=== PATIENT | female | born 1955 | race Caucasian/White ===

== ENCOUNTER 2023-11-24 22:23 | Emergency (ER) | payer MEDICARE ==
[2023-11-24] MEDS ORDERED: SODIUM CHLORIDE 0.9% 1,000 ML BAG ONE (23:00)
--- NOTE | 2024-01-03 18:14 | XR ---
EXAM: XR Chest, 2 Views CLINICAL HISTORY: cough congestion palpitations TECHNIQUE: Frontal and lateral views of the chest. COMPARISON: No relevant prior studies available. IMPRESSION: Cardiomegaly. Mild vascular congestion. Radiologist: Porfirio Marmolejo MD Electronically Signed: 11/25/23 02:17 Study first marked ready to read at 00:39, study last marked ready to read at 00:39, initial results transmitted at 02:17 MTDD
== END 2023-11-25 07:30 | disposition home or self-care (01) ==
LOC: EC 22:23
CPT/HCPCS: 36415; 71046; 84481; 99285

== ENCOUNTER 2024-05-04 03:18 | Emergency (ER) | payer MEDICARE ==
[2024-05-04 03:50] LABS: Anisocytosis Slight; Basophils % (A) 0 %; Eosinophils # (A) 0.1 k/uL (0-0.7); Eosinophils % (A) 1 %; HCT 37.5 % (34.0-46.0); HGB 12.1 gm/dL (11.4-16.0); Hypochromasia Slight; Lymphocytes # (A) 1.1 k/uL (1.0-4.8); Lymphocytes % (A) 8 %; MCH 34.7 pg (25.0-35.0); MCHC 32.2 g/dL (31.0-37.0); MCV 107.7 fL (80.0-100.0); Macrocytosis Marked; Mean Platelet Volume 8.6; Monocytes % (A) 8 %; Neutrophils # (A) 10.7 k/uL (1.3-7.7); Neutrophils % (A) 81 %; RBC 3.48 m/uL (3.80-5.40); RDW 17.4 % (11.5-15.5); WBC 13.1 k/uL (3.8-10.6)
[2024-05-04 03:52] LABS: Ionized Calcium 5.1 mg/dL (4.5-5.3)
[2024-05-04] MEDS: SODIUM CHLORIDE 0.9% 500 ML 500 ML IV STA (03:54)
[2024-05-04 04:01] LABS: AST 36 U/L (14-36); Acetaminophen <10.0 ug/mL; African American GFR (CKD) 22 (>60 ml/min/1.73 sqM); Albumin 3.4 g/dL (3.5-5.0); Alkaline Phosphatase 78 U/L (38-126); Anion Gap 17 mmol/L; Blood Urea Nitrogen 43 mg/dL (7-17); Calcium 10.3 mg/dL (8.4-10.2); Carbon Dioxide 18 mmol/L (22-30); Chloride 95 mmol/L (98-107); Glucose 120 mg/dL (74-99); Magnesium 1.9 mg/dL (1.6-2.3); Non-African American GFR(CKD) 19 (>60 ml/min/1.73 sqM); Potassium 3.3 mmol/L (3.5-5.1); Salicylate <1.0 mg/dL; Sodium 130 mmol/L (137-145); Total Bilirubin 4.1 mg/dL (0.2-1.3); Total Protein 5.8 g/dL (6.3-8.2)
[2024-05-04 04:07] LABS: ALT 22 U/L (4-34)
--- NOTE | 2024-05-04 04:12 | ED ---
General Adult HPI - General Chief complaint: Weakness Stated complaint: weakness Time Seen by Provider: 05/04/24 03:25 Source: EMS Mode of arrival: EMS - History of Present Illness Initial comments: Patient is a 68-year-old female past medical history of MENDOZA presenting today for generalized weakness. Per EMS report patient was recently discharged from the hospital and for the last 3 days she has been so weak that her son and have tried to had to lift her to get her to the toilet. History is limited as patient is currently confused. - Related Data Allergies Allergy/AdvReac Type Severity Reaction Status Date / Time GEMMA Inhibitors Allergy Swelling Verified 05/04/24 04:11 adhesive tape Allergy Rash/Hives Verified 05/04/24 04:11 isosorbide Allergy Anaphylaxis Verified 05/04/24 04:11 Review of Systems ROS Statement: Those systems with pertinent positive or pertinent negative responses have been documented in the HPI. Limitations: ROS unobtainable due to patients medical condition Past Medical History Past Medical History: Cancer General Exam - General Exam Comments Initial Comments: PE: CONSTITUTIONAL: [no apparent distress, ill-appearing, nontoxic] SKIN: [warm, dry,no hives or petechiae; generalized jaundice] EYES:[ pupils are equally round, extraocular movements intact without nystagmus, clear conjunctiva, scleral icterus] HENT: [normocephalic, atraumatic, dry mucus membranes, oropharynx clear without exudates] NECK: , [Full range of motion, normal appearance] PULMONARY: [clear to auscultation without wheezes, rhonchi, or rales, normal excursion, no accessory muscle use and no stridor] CARDIOVASCULAR:[ regular rate, rhythm, normal S1 and S2. No appreciated murmurs, rubs or gallops. Strong radial pulses with intact distal perfusion. No lower extremity edema] GASTROINTESTINAL: [soft, active bowel sounds throughout, tender to palpation in the right upper quadrant, mildly distended, no palpable masses, no rebound or guarding. Palpable hepatomegaly] GENITOURINARY: MUSCULOSKELETAL: [Extremities have no gross deformity, no edema, redness, or swelling. No calf swelling ] NEUROLOGIC: [_a/o x 1-2, GCS 14, confused mentation and speech without focal neurologic deficit. Moves all extremities x 4 without motor or sensory deficit] PSYCHIATRIC:[ _normal mood and affect, thought process is clear and linear] Course Vital Signs 05/04/24 03:20 Temperature 97.2 F L Pulse Rate 94 Respiratory 16 Rate Blood Pressure 115/75 O2 Sat by Pulse 99 Oximetry EKG Findings - EKG Comments: EKG Findings:: Sinus rhythm, rate 93 bpm, AR interval 132 ms QRS duration 120 ms QT/QTc 397/447, normal axis, right bundle branch block, no ST elevations or depressions, no STEMI Medical Decision Making - Medical Decision Making Was pt. sent in by a medical professional or institution (, PA, LIDAR ANALYST, urgent care, hospital, or fdc...) When possible be specific @ -No Did you speak to anyone other than the patient for history (EMS, parent, family, police, friend...)? What history was obtained from this source @ -I spoke with patient's who assisted in providing history, stating patient was recently admitted to [facility] due to complications from MENDOZA Did you review nursing and triage notes (agree or disagree)? Why? @ -I reviewed nursing and triage notes Were old charts reviewed (outside hosp., previous admission, EMS record, old EKG, old radiological studies, urgent care reports/EKG's, fdc records)? Report findings @ -Medical records reviewed reviewed discharge papers that were brought with patient from home, patient was discharged from [facility] on 04/29/2023, discharged with lactulose and Dilaudid Differential Diagnosis (chest pain, altered mental status, abdominal pain women, abdominal pain men, vaginal bleeding, weakness, fever, dyspnea, syncope, headache, dizziness, GI bleed, back pain, seizure, CVA, palpatations, mental health, musculoskeletal)? @Differential Weakness: Hypoglycemia, shock, sepsis, hyponatremia, anemia, infection, ACS, adverse medicine reaction, overdose, hyperammonemia, KALANI, this is not meant to be an all-inclusive list. EKG interpreted by me (3pts min.). @ -As above X-rays interpreted by me (1pt min.). @Reviewed patient's chest x-ray, I see no evidence of cardiomegaly, consolidations or pleural effusions CT interpreted by me (1pt min.). @I reviewed CT brain, I see no evidence of hemorrhage or mass effect U/S interpreted by me (1pt. min.). @ -None done What testing was considered but not performed or refused? (CT, X-rays, U/S, labs)? Why? @CT abdomen pelvis considered, however suspect RUQ pain 2/2 underlying liver disease, pt afebrile and abdomen is otherwise soft without peritoneal signs What meds were considered but not given or refused? Why? @ -None Did you discuss the management of the patient with other professionals (professionals i.e. , PA, LIDAR ANALYST, lab, RT, psych nurse, social worker aide, seasoning sprayer, teacher, chief security officer, disease case manager)? Give summary @ -No Was smoking cessation discussed for >3mins.? @ -No Was critical care preformed (if so, how long)? @ -No Were there social determinants of health that impacted care today? How? (Shiva elessness, low income, unemployed, alcoholism, drug addiction, transportation, low edu. Level, literacy, decrease access to med. care, penitentiary, rehab)? @ -No Was there de-escalation of care discussed even if they declined (Discuss DNR or withdrawal of care, Hospice)? @ -No What co-morbidities impacted this encounter? (DM, HTN, Smoking, COPD, CAD, Cancer, CVA, ARF, Chemo, Hep., AIDS, mental health diagnosis, sleep apnea, morbid obesity)? Transfer to [facility]- Patient is a 68-year-old female past medical history of MENDOZA presenting today for generalized weakness. On my assessment patient is awake though ill-appearing, nontoxic, she is confused oriented x 1-2, no focal neurodeficits, jaundice, scleral icterus, right upper quadrant tenderness to palpation. Vital signs in acceptable limits on arrival. I suspect confusion and weakness are likely secondary to hyperammonemia however we will obtain a CT brain, comprehensive labs chest x-ray EKG give small amount of IV fluids given dry mucous membranes. Currently awaiting 's arrival for further information. Labs significant for mild leukocytosis white blood count 13.1, platelets of 80, sodium 138 potassium 3.3, anion gap 17, BUN 43, creatinine 2.52, no prior for comparison, GFR 19, lactic of 5.4, calcium 10.3 ammonia 75, AST/ALT. within normal limits, total bilirubin 4.1. Given RUQ pain, leukocytosis, elevated lactic, added blood cultures, rocephin to cover for SBP, and additional IV fluids for total 2L to complete sepsis bundle and 30 cc/kg bolus based on IBW. Added lactulose as well 2/2 elevated ammonia. Patient at bedside. States that patient does has MENDOZA, and has been seeing a liver doctor at [facility]. She was also found to have a mass in her uterus that "they think could be potentially cancerous" however they are not able to do further testing or treatment at this time, due to how unstable patient has been 2/2 her liver and renal disease. States that her doctor at [facility] has been considering some type of shunt 2/2 her liver disease however pt has been too sick to undergo the procedure. Ever since discharge from [place] on 29 April, she is become progressively weaker, has been "delusional" and had persistent abdominal pain. Given patient's jaundice, poor kidney function, elevated lactic and ammonia, pt will need to be admitted to the hospital, however will need to see her liver specialist as well. For this reason discussed with patient's plan for transfer to [facility]. Patient's is agreeable with plan. Case discussed with Dr. Dahl, [facility], who kindly accepts patient for transfer to their ER. Undiagnosed new problem with uncertain prognosis? @ -No Drug Therapy requiring intensive monitoring for toxicity (Heparin, Nitro, Insulin, Cardizem)? @ -No Were any procedures done? @ -No Diagnosis/symptom? Hepatic encephalopathy Acute, or Chronic, or Acute on Chronic? acute Uncomplicated (without systemic symptoms) or Complicated (systemic symptoms)? complicated Side effects of treatment? @ -No Exacerbation, Progression, or Severe Exacerbation? @ -No Poses a threat to life or bodily function? How? (Chest pain, USA, [place], pneumonia, PE, COPD, DKA, ARF, appy, cholecystitis, CVA, Diverticulitis, Homicidal, Suicidal, threat to staff... and all critical care pts) yes - Lab Data Result diagrams: 05/04/24 03:41 05/04/24 03:41 Lab Results 05/04/24 05/04/24 05/04/24 Range/Units 03:41 03:41 03:41 WBC 13.1 H (3.8-10.6) k/uL RBC 3.48 L (3.80-5.40) m/uL Hgb 12.1 (11.4-16.0) gm/dL Hct 37.5 (34.0-46.0) % MCV 107.7 H (80.0-100.0) fL MCH 34.7 (25.0-35.0) pg MCHC 32.2 (31.0-37.0) g/dL RDW 17.4 H (11.5-15.5) % Plt Count 80 L (150-450) k/uL MPV 8.6 Hypochromasia Slight Anisocytosis Slight Macrocytosis Marked A PT 19.6 H (10.0-12.5) sec INR 1.9 H (<1.2) APTT 32.2 H (22.0-30.0) sec Sodium 130 L (137-145) mmol/L Potassium 3.3 L (3.5-5.1) mmol/L Chloride 95 L (98-107) mmol/L Carbon Dioxide 18 L (22-30) mmol/L Anion Gap 17 mmol/L BUN 43 H (7-17) mg/dL Creatinine 2.52 H (0.52-1.04) mg/dL Est GFR (CKD-EPI)AfAm 22 (>60 ml/min/1.73 sqM) Est GFR (CKD-EPI)NonAf 19 (>60 ml/min/1.73 sqM) Glucose 120 H (74-99) mg/dL Plasma Lactic Acid Luis (0.7-2.0) mmol/L Calcium 10.3 H (8.4-10.2) mg/dL Ionized Calcium Cl 5.1 (4.5-5.3) mg/dL Magnesium 1.9 (1.6-2.3) mg/dL Total Bilirubin 4.1 H (0.2-1.3) mg/dL AST 36 (14-36) U/L ALT 22 (4-34) U/L Alkaline Phosphatase 78 (38-126) U/L Ammonia (<30) umol/L Troponin I (0.000-0.034) ng/mL Total Protein 5.8 L (6.3-8.2) g/dL Albumin 3.4 L (3.5-5.0) g/dL TSH 1.460 (0.465-4.680) mIU/L Salicylates <1.0 mg/dL Acetaminophen <10.0 ug/mL 05/04/24 05/04/24 Range/Units 03:41 03:41 WBC (3.8-10.6) k/uL RBC (3.80-5.40) m/uL Hgb (11.4-16.0) gm/dL Hct (34.0-46.0) % MCV (80.0-100.0) fL MCH (25.0-35.0) pg MCHC (31.0-37.0) g/dL RDW (11.5-15.5) % Plt Count (150-450) k/uL MPV Hypochromasia Anisocytosis Macrocytosis PT (10.0-12.5) sec INR (<1.2) APTT (22.0-30.0) sec Sodium (137-145) mmol/L Potassium (3.5-5.1) mmol/L Chloride (98-107) mmol/L Carbon Dioxide (22-30) mmol/L Anion Gap mmol/L BUN (7-17) mg/dL Creatinine (0.52-1.04) mg/dL Est GFR (CKD-EPI)AfAm (>60 ml/min/1.73 sqM) Est GFR (CKD-EPI)NonAf (>60 ml/min/1.73 sqM) Glucose (74-99) mg/dL Plasma Lactic Acid Luis 5.4 H* (0.7-2.0) mmol/L Calcium (8.4-10.2) mg/dL Ionized Calcium Cl (4.5-5.3) mg/dL Magnesium (1.6-2.3) mg/dL Total Bilirubin (0.2-1.3) mg/dL AST (14-36) U/L ALT (4-34) U/L Alkaline Phosphatase (38-126) U/L Ammonia 75 H (<30) umol/L Troponin I <0.012 (0.000-0.034) ng/mL Total Protein (6.3-8.2) g/dL Albumin (3.5-5.0) g/dL TSH (0.465-4.680) mIU/L Salicylates mg/dL Acetaminophen ug/mL Disposition Clinical Impression: Hepatic encephalopathy Disposition: DC/TRNS INTERMEDIATE CARE FAC Condition: Stable Referrals: None,Stated [Primary Care Provider] - 1-2 days
[2024-05-04 04:24] LABS: Lactic Acid, Venous 5.4 mmol/L (0.7-2.0)
--- NOTE | 2024-05-04 04:29 | CT ---
EXAM: CT Head Without Intravenous Contrast CLINICAL HISTORY: ITS.REASON CT Reason: weakness, AMS TECHNIQUE: Axial computed tomography images of the head/brain without intravenous contrast. CTDI is 49.2 mGy and DLP is 1184.4 mGy-cm. This CT exam was performed using one or more of the following dose reduction techniques: automated exposure control, adjustment of the mA and/or kV according to patient size, and/or use of iterative reconstruction technique. COMPARISON: No relevant prior studies available. FINDINGS: No acute intracranial hemorrhage. No midline shift or mass effect. The territorial pratt-white matter differentiation is maintained throughout. Age-related cerebral volume loss. Periventricular and subcortical white matter hypoattenuation, consistent with chronic microangiopathy. The visualized orbits appear grossly unremarkable. The calvarium is intact. The visualized paranasal sinuses and mastoid air cells are grossly clear. IMPRESSION: No acute intracranial hemorrhage, midline shift, or mass effect.
[2024-05-04] MEDS: LACTULOSE 20 GM/30 ML CUP PO ONE (04:31)
[2024-05-04] MEDS: LACTATED RINGERS 1,000 ML BAG IV STA ×2 (04:36→06:22)
[2024-05-04 04:53] LABS: INR 1.9 (<1.2); Partial Thromboplastin Time 32.2 sec (22.0-30.0); Prothrombin Time 19.6 sec (10.0-12.5)
[2024-05-04] MEDS: POTASSIUM CHLORIDE 20 MEQ in WATER FOR INJECTION 1 100ML.BAG IVPB STA (05:45)
[2024-05-04 06:10] LABS: Platelet Count 80 k/uL (150-450)
[2024-05-04] MEDS: HYDROmorphone 0.5 MG/0.5 ML SYRINGE IVP STA (06:12)
[2024-05-04] MEDS: cefTRIAXone 1,000 MG VIAL (IM USE) IM STA ×2 (06:14→06:21)
--- NOTE | 2024-05-04 06:20 | XR ---
EXAM: XR Chest, 2 Views CLINICAL HISTORY: Reason: Weakness TECHNIQUE: Frontal and lateral views of the chest. COMPARISON: No relevant prior studies available. FINDINGS: Lungs: Normal lung volumes. No evidence of airspace consolidation. No pulmonary edema. Pleural space: Unremarkable. No pneumothorax. No significant pleural effusion. Heart: Unremarkable. No cardiomegaly. Mediastinum: Unremarkable. Normal mediastinal contour. Bones/joints: Unremarkable. No acute fracture. IMPRESSION: No evidence of active cardiopulmonary abnormality.
[2024-05-04 07:35] VITALS: BP 112/81; PULSE 89; RESP 20; TEMP 97.5
== END 2024-05-04 07:35 | disposition other institution (70) ==
LOC: EC 03:18
DX: K76.82 Hepatic encephalopathy (principal); I45.10 Unspecified right bundle-branch block; D72.829 Elevated white blood cell count, unspecified; R74.02 Elevation of levels of lactic acid dehydrogenase [LDH]; Z88.8 Allergy status to other drugs, medicaments and biological substances; Z91.09 Other allergy status, other than to drugs and biological substances
CPT/HCPCS: 36415; 93005; 80053; 82330; 82140; 83605; 83735; 84443; 84484; 85025; 85610; 85730; 80143; 80179; 71046; 70450; 99285; 96365; 96375; 96361 ×2; 96372; J3480; J0696; J1171

== ENCOUNTER 2024-07-06 08:54 | Inpatient (IN) | payer MEDICARE ==
--- NOTE | 2024-07-06 09:07 | ED ---
General Adult HPI - General Stated complaint: Weakness Time Seen by Provider: 07/06/24 08:54 Source: patient, RN notes reviewed, old records reviewed - History of Present Illness Initial comments: This is a 69-year-old female who presents to the emergency department with a past medical history significant for renal failure liver failure and a history of vertigo. Patient states she believes which she has going on today is vert ical. Patient states that started 3 days ago and she is very dizzy lightheaded and weak but she also was acutely nauseous and been vomiting for quite a while. Patient denies any fever or chills. Patient Nu[place] any abdominal pain. Patient denies chest pain palpitations difficulty breathing or shortness of breath. Patient denies any recent injury or trauma. Patient currently is unable to tell me why she has kidney failure or liver failure. - Related Data Home Medications Medication Instructions Recorded Confirmed Aspirin [Adult Low Dose Aspirin EC] 81 mg PO DAILY 07/01/24 07/06/24 Cider Vinegar [Apple Cider Vinegar] 300 mg PO DAILY 07/01/24 07/06/24 Lactulose 10 gm PO BID PRN 07/01/24 07/06/24 Midodrine [ProAmatine] 17.5 tab PO TID 07/01/24 07/06/24 Pantoprazole [Protonix] 40 mg PO BID 07/01/24 07/06/24 Rosuvastatin [Crestor] 20 mg PO HS 07/01/24 07/06/24 Sodium Bicarbonate Tab 1,300 mg PO TID 07/01/24 07/06/24 Hydrocortisone Cream 1 applic TOPICAL DAILY 07/06/24 07/06/24 [Hydrocortisone 2.5% Cream] Ondansetron Odt [Zofran Odt] 4 mg PO Q6H PRN 07/06/24 07/06/24 Rifaximin [Xifaxan] 550 mg PO BID 07/06/24 07/06/24 Allergies Allergy/AdvReac Type Severity Reaction Status Date / Time GEMMA Inhibitors Allergy Swelling Verified 07/06/24 11:45 adhesive tape Allergy Rash/Hives Verified 07/06/24 11:45 isosorbide Allergy Anaphylaxis Verified 07/06/24 11:45 octreotide Allergy Hallucinati Verified 07/06/24 11:45 ons Review of Systems ROS Statement: Those systems with pertinent positive or pertinent negative responses have been documented in the HPI. ROS Other: All systems not noted in ROS Statement are negative. Past Medical History Past Medical History: Cancer General Exam - General Exam Comments Initial Comments: GENERAL: Patient is well-developed and well-nourished. Patient is nontoxic and well- hydrated and is in mild distress. ENT: Neck is soft and supple. No significant lymphadenopathy is noted. Oropharynx is clear. Moist mucous membranes. Neck has full range of motion without elic iting any pain. EYES: The sclera were anicteric and conjunctiva were pink and moist. Extraocular movements were intact and pupils were equal round and reactive to light. Eyelids were unremarkable. PULMONARY: Unlabored respirations. Good breath sounds bilaterally. No audible rales rhonchi or wheezing was noted. CARDIOVASCULAR: There is a regular rate and rhythm without any murmurs gallops or rubs. ABDOMEN: Soft and nontender with normal bowel sounds. SKIN: Skin is clear with no lesions or rashes and otherwise unremarkable. NEUROLOGIC: Patient is alert and oriented x3. Cranial nerves II through XII are grossly intact. Motor and sensory are also intact. Normal speech, volume and content. Symmetrical smile. Finger-nose testing was normal bilaterally MUSCULOSKELETAL: Normal extremities with adequate strength and full range of motion. LYMPHATICS: No significant lymphadenopathy is noted PSYCHIATRIC: Normal psychiatric evaluation. Course Vital Signs 07/06/24 07/06/24 07/06/24 08:55 09:23 09:45 Temperature 97.4 F L Pulse Rate 89 89 Respiratory 18 18 Rate Blood Pressure 75/58 89/47 92/49 O2 Sat by Pulse 90 L 94 L Oximetry 07/06/24 07/06/24 07/06/24 10:15 10:30 11:15 Temperature Pulse Rate 87 Respiratory 20 Rate Blood Pressure 103/54 89/53 90/50 O2 Sat by Pulse 93 L Oximetry 07/06/24 07/06/24 11:30 11:47 Temperature Pulse Rate 90 Respiratory 20 Rate Blood Pressure 91/49 84/52 O2 Sat by Pulse 96 Oximetry Medical Decision Making - Medical Decision Making EKG is interpreted by myself. EKG shows a sinus rhythm 87 bpm ND interval is 172 QRS is 105 QT interval 392 QTc is 437. Patient's EKG shows no ST segment elevation. Was pt. sent in by a medical professional or institution (Dr., PA, CAR BODY MECHANIC, urgent care, hospital, or penitentiary...) When possible be specific @ -No Did you speak to anyone other than the patient for history (EMS, parent, family, police, friend...)? What history was obtained from this source @ -No Did you review nursing and triage notes (agree or disagree)? Why? @ -I reviewed and agree with nursing and triage notes Were old charts reviewed (outside hosp., previous admission, EMS record, old EKG, old radiological studies, urgent care reports/EKG's, penitentiary records)? Report findings @ -No old charts were reviewed Differential Diagnosis? @ -Vertigo, gastritis, viral syndrome, this is not an all-inclusive list EKG interpreted by me (3pts min.). @ -As above X-rays interpreted by me (1pt min.). @ -Chest x-ray shows no acute abnormality CT interpreted by me (1pt min.). @ -CT of the brain shows no acute abnormality U/S interpreted by me (1pt. min.). @ -None done What testing was considered but not performed or refused? (CT, X-rays, U/S, labs)? Why? @ -None What meds were considered but not given or refused? Why? @ -None Did you discuss the management of the patient with other professionals (professionals i.e. BETO Puente, CAR BODY MECHANIC, lab, RT, psych nurse, social service worker, tile erector, teacher, event security officer, telephonic case manager)? Give summary @ -I spoke with sound physicians he agreed to admit the patient admit the patient wrote admitting orders Was smoking cessation discussed for >3mins.? @ -No Was critical care preformed (if so, how long)? @ -No Were there social determinants of health that impacted care today? How? (Homelessness, low income, unemployed, alcoholism, drug addiction, transportation, low edu. Level, literacy, decrease access to med. care, fpc, rehab)? @ -No Was there de-escalation of care discussed even if they declined (Discuss DNR or withdrawal of care, Hospice)? DNR status @ -No What co-morbidities impacted this encounter? (DM, HTN, Smoking, COPD, CAD, Cancer, CVA, ARF, Chemo, Hep., AIDS, mental health diagnosis, sleep apnea, morbid obesity)? @ -None Was patient admitted / discharged? Hospital course, mention meds given and route, prescriptions, significant lab abnormalities, going to OR and other pertinent info. @ -Patient's lab work came back with a lower than normal hemoglobin sodium was 124 creatinine had significantly increased since her last visit. Patient will be [facility] with a consult to nephrology and GI Undiagnosed new problem with uncertain prognosis? @ -No Drug Therapy requiring intensive monitoring for toxicity (Heparin, Nitro, Insulin, Cardizem)? @ -No Were any procedures done? @ -No Diagnosis/symptom? @ -Acute on chronic renal failure Acute, or Chronic, or Acute on Chronic? @ -Acute on chronic Uncomplicated (without systemic symptoms) or Complicated (systemic symptoms)? @ -Complicate Side effects of treatment? @ -No Exacerbation, Progression, or Severe Exacerbation? @ -No Poses a threat to life or bodily function? How? (Chest pain, USA, [place], pneumonia, PE, COPD, DKA, ARF, appy, cholecystitis, CVA, Diverticulitis, Homicidal, Suicidal, threat to staff... and all critical care pts) @ -Yes this could lead to electrolyte abnormalities and significant morbidity or mortality Diagnosis/symptom? @ -Hyponatremia Acute, or Chronic, or Acute on Chronic? @ -Acute Uncomplicated (without systemic symptoms) or Complicated (systemic symptoms)? @ -Complicate Side effects of treatment? @ -None Exacerbation, Progression, or Severe Exacerbation] @ -No Poses a threat to life or bodily function? @ -No Diagnosis/symptom? @ -Anemia Acute, or Chronic, or Acute on Chronic? @ -Acute Uncomplicated (without systemic symptoms) or Complicated (systemic symptoms)? @ -Complicated Side effects of treatment? @ -None Exacerbation, Progression, or Severe Exacerbation] @ -No Poses a threat to life or bodily function? @ -No - Lab Data Result diagrams: 07/06/24 09:11 07/06/24 09:11 Lab Results 07/06/24 07/06/24 07/06/24 Range/Units 09:11 09:11 09:11 WBC 8.5 (3.8-10.6) k/uL RBC 2.98 L (3.80-5.40) m/uL Hgb 9.8 L D (11.4-16.0) gm/dL Hct 30.2 L (34.0-46.0) % MCV 101.2 H D (80.0-100.0) fL MCH 33.0 (25.0-35.0) pg MCHC 32.6 (31.0-37.0) g/dL RDW 23.1 H (11.5-15.5) % Plt Count 106 L (150-450) k/uL MPV 8.6 Neutrophils % (Manual) 85 % Lymphocytes % (Manual) 8 % Monocytes % (Manual) 7 % Neutrophils # (Manual) 7.23 (1.3-7.7) k/uL Lymphocytes # (Manual) 0.68 L (1.0-4.8) k/uL Monocytes # (Manual) 0.60 (0-1.0) k/uL Nucleated RBCs 0 (0-0) /100 WBC Manual Slide Review Performed Anisocytosis Moderate Macrocytosis Marked A PT 14.0 H (10.0-12.5) sec INR 1.3 H (<1.2) APTT 22.5 (22.0-30.0) sec Sodium 124 L (137-145) mmol/L Potassium 3.8 (3.5-5.1) mmol/L Chloride 87 L (98-107) mmol/L Carbon Dioxide 21 L (22-30) mmol/L Anion Gap 16 mmol/L BUN 72 H (7-17) mg/dL Creatinine 4.79 H (0.52-1.04) mg/dL Est GFR (CKD-EPI)AfAm 10 (>60 ml/min/1.73 sqM) Est GFR (CKD-EPI)NonAf 9 (>60 ml/min/1.73 sqM) Glucose 135 H (74-99) mg/dL Calcium 9.4 (8.4-10.2) mg/dL Magnesium 2.8 H (1.6-2.3) mg/dL Total Bilirubin 2.6 H (0.2-1.3) mg/dL AST 68 H (14-36) U/L ALT 22 (4-34) U/L Alkaline Phosphatase 133 H (38-126) U/L Troponin I (0.000-0.034) ng/mL Total Protein 5.4 L (6.3-8.2) g/dL Albumin 2.9 L (3.5-5.0) g/dL 07/06/24 Range/Units 09:11 WBC (3.8-10.6) k/uL RBC (3.80-5.40) m/uL Hgb (11.4-16.0) gm/dL Hct (34.0-46.0) % MCV (80.0-100.0) fL MCH (25.0-35.0) pg MCHC (31.0-37.0) g/dL RDW (11.5-15.5) % Plt Count (150-450) k/uL MPV Neutrophils % (Manual) % Lymphocytes % (Manual) % Monocytes % (Manual) % Neutrophils # (Manual) (1.3-7.7) k/uL Lymphocytes # (Manual) (1.0-4.8) k/uL Monocytes # (Manual) (0-1.0) k/uL Nucleated RBCs (0-0) /100 WBC Manual Slide Review Anisocytosis Macrocytosis PT (10.0-12.5) sec INR (<1.2) APTT (22.0-30.0) sec Sodium (137-145) mmol/L Potassium (3.5-5.1) mmol/L Chloride (98-107) mmol/L Carbon Dioxide (22-30) mmol/L Anion Gap mmol/L BUN (7-17) mg/dL Creatinine (0.52-1.04) mg/dL Est GFR (CKD-EPI)AfAm (>60 ml/min/1.73 sqM) Est GFR (CKD-EPI)NonAf (>60 ml/min/1.73 sqM) Glucose (74-99) mg/dL Calcium (8.4-10.2) mg/dL Magnesium (1.6-2.3) mg/dL Total Bilirubin (0.2-1.3) mg/dL AST (14-36) U/L ALT (4-34) U/L Alkaline Phosphatase (38-126) U/L Troponin I <0.012 (0.000-0.034) ng/mL Total Protein (6.3-8.2) g/dL Albumin (3.5-5.0) g/dL Disposition Clinical Impression: Anemia, Hyponatremia, Acute on chronic renal failure Disposition: ADMITTED IP TO THIS HOSP Referrals: Korin Ramesh MD [Primary Care Provider] - 1-2 days Time of Disposition: 12:11
[2024-07-06] MEDS: SCOPOLAMINE 1 MG/72 HR PATCH TRANSDERM STA (09:13)
[2024-07-06] MEDS: METOCLOPRAMIDE 5 MG/ML 2 ML VIAL IVP STA (09:13)
[2024-07-06] MEDS: LACTATED RINGERS 500 ML IV ONE (09:13)
[2024-07-06 09:17] LABS: Anisocytosis Moderate; HCT 30.2 % (34.0-46.0); MCHC 32.6 g/dL (31.0-37.0); Macrocytosis Marked; Mean Platelet Volume 8.6; Platelet Count 106 k/uL (150-450); RBC 2.98 m/uL (3.80-5.40); RDW 23.1 % (11.5-15.5); WBC 8.5 k/uL (3.8-10.6)
[2024-07-06 09:28] LABS: ALT 22 U/L (4-34); AST 68 U/L (14-36); African American GFR (CKD) 10 (>60 ml/min/1.73 sqM); Albumin 2.9 g/dL (3.5-5.0); Alkaline Phosphatase 133 U/L (38-126); Anion Gap 16 mmol/L; Blood Urea Nitrogen 72 mg/dL (7-17); Calcium 9.4 mg/dL (8.4-10.2); Carbon Dioxide 21 mmol/L (22-30); Chloride 87 mmol/L (98-107); Glucose 135 mg/dL (74-99); Magnesium 2.8 mg/dL (1.6-2.3); Non-African American GFR(CKD) 9 (>60 ml/min/1.73 sqM); Potassium 3.8 mmol/L (3.5-5.1); Sodium 124 mmol/L (137-145); Total Bilirubin 2.6 mg/dL (0.2-1.3); Total Protein 5.4 g/dL (6.3-8.2)
[2024-07-06 09:31] LABS: HGB 9.8 gm/dL (11.4-16.0); MCV 101.2 fL (80.0-100.0)
[2024-07-06 09:36] LABS: INR 1.3 (<1.2); Partial Thromboplastin Time 22.5 sec (22.0-30.0)
--- NOTE | 2024-07-06 09:49 | XR ---
EXAMINATION TYPE: XR chest 2V DATE OF EXAM: 07/06/2024 9:45 AM COMPARISON: 05/04/2024 CLINICAL INDICATION: Female, 69 years old with history of Chest Pain, TECHNIQUE: XR chest 2V view(s) obtained. FINDINGS: The heart size is normal. The pulmonary vasculature is normal. Mild left basilar infiltrate. Correlate for atelectasis or developing pneumonia IMPRESSION: 1. Left lower lobe atelectasis or pneumonia. [facility], , 07/06/2024 9:47 AM
--- NOTE | 2024-07-06 09:51 | CT ---
EXAMINATION TYPE: CT brain wo con DATE OF EXAM: 07/06/2024 9:45 AM COMPARISON: None. CLINICAL INDICATION: Female, 69 years old with history of Acute vomiting, dizziness, Acute vomiting, dizziness TECHNIQUE: CT of the brain is performed utilizing 3 mm thick sections through the posterior fossa and 3 mm thick sections through the remaining calvarium. Study is performed within 24 hours of arrival to the hospital. Contrast used: mL of , (none if empty) CT DLP: 1111.7 mGycm, Automated exposure control for dose reduction was used. FINDINGS: No abnormal hyperdensity is present to suggest an acute intracranial hemorrhage. No mass lesion is evident. No acute infarcts are evident. There is some mild periventricular white matter hypodensity, likely on the basis of chronic white matter ischemic change. Ventricles and sulci are mildly prominent for the patient age. Paranasal sinuses and mastoid air cells within the [id number] are clear. IMPRESSION: 1. No acute intracranial process. Follow up MRI can be performed as clinically indicated. 2. Mild chronic appearing periventricular white matter ischemic type changes with age related atrophy . [facility], , 07/06/2024 9:49 AM
[2024-07-06 10:41] LABS: Lymphocytes # (M) 0.68 k/uL (1.0-4.8); Neutrophils # (M) 7.23 k/uL (1.3-7.7); Neutrophils % (M) 85 %; Nucleated Red Blood Cells 0 /100 WBC (0-0); Total Cells Counted 100
[2024-07-06] MEDS: SODIUM CHLORIDE 0.9% 500 ML 500 ML IV ONE (10:54)
[2024-07-06] MEDS ORDERED: ONDANSETRON 4 MG/2 ML VIAL IVP PRN (12:14)
[2024-07-06] MEDS: SODIUM CHLORIDE 0.9% 1,000 ML IV ONE ×2 (12:43→16:26)
--- NOTE | 2024-07-06 13:45 | P.HPIM ---
History of Present Illness H&P Date: 07/06/24 69 year old F with PMH of liver cirrhosis requiring weekly paracentesis and CKD presents to the ED for generalized weakness and hallucinations. History is supplemented by the as patient appears lethargic. Symptoms ongoing for the past 2 days. He reports she has started hallucinating today along with bouts of NBNB N/V. reports a poor appetite during this time. She reports lightheadedness with changes in position. 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. Patient denies any pain. She denies any headache, fever or chills, cough, chest pain, shortness of breath, palpitations, changes in bowel habits. She denies any numbness/tinging of the extremities. In the ED she underwent extensive evaluation. BP 75/58, HR 89, T 97.4F, RR 18, 90% on RA. CBC, Coag panel, CMP significant for WBC 2.98, Hg 9.8, Hct 30.2, MCV 101.2, Plt 106, PT 14, INR 1.3, Na 124, Cl 87, bicarb 21, BUN 72, Cr 4.79, glu 135, T. Bili 2.6, AST 68, alk phos 133, alb 2.9. Trop < 0.012. Mag 2.8. CXR LLL atelectasis/infiltrate. CT head no acute process. EKG sinus rhythm General: toxic, mild distress, appears stated age Derm: warm, dry Head: atraumatic, normocephalic, symmetric Mouth: no lip lesion, mucus membranes moist Cardiovascular: S1S2 tachy, no murmur Lungs: Decreased BS bilaterally, no rales , no accessory muscle use Abd: Soft, non tender to palpation Ext: no gross muscle atrophy, 1+ LE edema, no contractures Neuro: Unable to participate. Psych: Lethargic. Based on my assessment of this patient, this patient meets a high complexity level of care. Acute metabolic encephalopathy with hallucinations: CT head as above. Possible hyperammonemia given history of cirrhosis. Obtain ammonia level. Check UA reflex to UCx. TSH, B12, Folate ordered. Fall precautions. PT and OT consult. Lightheadedness likely Orthostatic hypotension: Check orthostats and Echo. Restart Midodrine 17.5 mg PO TID. Telemetry monitoring. KALANI on CKD: Hepatorenal with prerenal component from dehydration. Start NS at 75 cc/hr. Obtain UA, renal/bladder US. Bladder scan now. Nephrology consulted. Decompensated cirrhosis: IR consulted for paracentesis. Restart Rifaximin 550 mg PO BID. Gastroenterology consult. Macrocytic anemia: No signs of active bleeding. Obtain B12, Folate as above. Iron studies ordered. Transfuse if Hg < 7. Hypervolemic Hyponatremia: Trial of IV hydration given hypotension and KALANI. May need diuresis. Patti, UOsm, SOsm ordered. Thrombocytopenia likely related to cirrhosis Supratherapeutic INR likely related to cirrhosis CODE STATUS: FULL CODE DVT Prophylaxis: SCD GI Prophylaxis: Protonix PO Designated medical POA if patient is not able to make medical decisions for t hemselves: I have reviewed the following senior health consultant notes: ED note. I have reviewed the results of the following tests: As above. I have ordered the following tests: As above. I have discussed the care of this patient with the following independent historian: . I have independently interpreted the following test below: CXR I have discussed the management of this patient with the following physician: Dr. Gabriel. Past Medical History Past Medical History: Cancer Additional Past Medical History / Comment(s): Renal failure, liver failure, 5 stents History of Any Multi-Drug Resistant Organisms: None Reported Past Surgical History: Heart Catheterization With Stent Smoking Status: Former smoker Past Alcohol Use History: None Reported Past Drug Use History: None Reported Medications and Allergies Home Medications Medication Instructions Recorded Confirmed Type Aspirin [Adult Low Dose Aspirin EC] 81 mg PO DAILY 07/01/24 07/06/24 History Cider Vinegar [Apple Cider Vinegar] 300 mg PO DAILY 07/01/24 07/06/24 History Lactulose 10 gm PO BID PRN 07/01/24 07/06/24 History Midodrine [ProAmatine] 17.5 tab PO TID 07/01/24 07/06/24 History Pantoprazole [Protonix] 40 mg PO BID 07/01/24 07/06/24 History Rosuvastatin [Crestor] 20 mg PO HS 07/01/24 07/06/24 History Sodium Bicarbonate Tab 1,300 mg PO TID 07/01/24 07/06/24 History Hydrocortisone Cream 1 applic TOPICAL DAILY 07/06/24 07/06/24 History [Hydrocortisone 2.5% Cream] Ondansetron Odt [Zofran Odt] 4 mg PO Q6H PRN 07/06/24 07/06/24 History Rifaximin [Xifaxan] 550 mg PO BID 07/06/24 07/06/24 History Allergies Allergy/AdvReac Type Severity Reaction Status Date / Time GEMMA Inhibitors Allergy Swelling Verified 07/06/24 11:45 adhesive tape Allergy Rash/Hives Verified 07/06/24 11:45 isosorbide Allergy Anaphylaxis Verified 07/06/24 11:45 octreotide Allergy Hallucinati Verified 07/06/24 11:45 ons Physical Exam Vitals: Vital Signs Temp Pulse Resp BP Pulse Ox 07/06/24 13:05 93 18 92/54 96 07/06/24 12:00 89 20 91/54 96 07/06/24 11:47 90 20 84/52 96 07/06/24 11:30 91/49 07/06/24 11:15 90/50 07/06/24 10:30 87 20 89/53 93 L 07/06/24 10:15 103/54 07/06/24 09:45 92/49 07/06/24 09:23 89 18 89/47 94 L 07/06/24 08:55 97.4 F L 89 18 75/58 90 L Intake and Output 07/05/24 07/06/24 07/06/24 22:59 06:59 14:59 Other: Weight 90.718 kg Results CBC & Chem 7: 07/06/24 09:11 07/06/24 09:11 Labs: Abnormal Lab Results - Last 24 Hours (Table) 07/06/24 07/06/24 07/06/24 Range/Units 09:11 09:11 09:11 RBC 2.98 L (3.80-5.40) m/uL Hgb 9.8 L D (11.4-16.0) gm/dL Hct 30.2 L (34.0-46.0) % MCV 101.2 H D (80.0-100.0) fL RDW 23.1 H (11.5-15.5) % Plt Count 106 L (150-450) k/uL Lymphocytes # (Manual) 0.68 L (1.0-4.8) k/uL Macrocytosis Marked A PT 14.0 H (10.0-12.5) sec INR 1.3 H (<1.2) Sodium 124 L (137-145) mmol/L Chloride 87 L (98-107) mmol/L Carbon Dioxide 21 L (22-30) mmol/L BUN 72 H (7-17) mg/dL Creatinine 4.79 H (0.52-1.04) mg/dL Glucose 135 H (74-99) mg/dL Magnesium 2.8 H (1.6-2.3) mg/dL Total Bilirubin 2.6 H (0.2-1.3) mg/dL AST 68 H (14-36) U/L Alkaline Phosphatase 133 H (38-126) U/L Total Protein 5.4 L (6.3-8.2) g/dL Albumin 2.9 L (3.5-5.0) g/dL
[2024-07-06] MEDS: MIDODRINE 5 MG TAB PO SCH (14:23)
--- NOTE | 2024-07-06 14:54 | US ---
EXAMINATION TYPE: US kidneys/renal and bladder DATE OF EXAM: 07/06/2024 COMPARISON: NONE CLINICAL INDICATION: Female, 69 years old with history of KALANI on CKD; Liver and renal failure, Hx par acentesis. TECHNIQUE: Grayscale imaging of the bilateral kidneys and urinary bladder: FINDINGS: EXAM MEASUREMENTS: Right Kidney: 10.1 x 4.4 x 4.3 cm Left Kidney: 9.0 x 4.6 x 4.3 cm Post Void Residual Volume: NA mL Ascites seen all four quadrents. Partially visualized cirrhotic liver morphology. Right Kidney: wnl, no evidence for hydronephrosis, mass or renal calculus. Increased parenchymal ech ogenicity. Left Kidney: Limited visualization due to ascites. Increased renal echogenicity. Bladder: wnl Bilateral Jets seen: No Normal Post Void Residual: NA There is no evidence for hydronephrosis at this point in time. No nephrolithiasis is seen. No cyndy s are identified. The urinary bladder is anechoic. IMPRESSION: 1. No evidence of acute obstructive uropathy. 2. Bilateral increased renal parenchymal echogenicity suggestive of underlying medical renal disease . 3. Partially visualized abdominal ascites. [facility], , 07/06/2024 2:52 PM
[2024-07-06] MEDS: LACTULOSE 20 GM/30 ML CUP PO SCH (16:26)
[2024-07-06] MEDS: SODIUM BICARBONATE TAB 650 MG TAB PO SCH (16:26)
[2024-07-06] MEDS: RIFAXIMIN 550 MG TABLET PO SCH (21:14)
[2024-07-06] MEDS: ATORVASTATIN 40 MG TAB PO SCH (21:14)
[2024-07-06] MEDS: PANTOPRAZOLE 40 MG TABLET PO SCH (21:14)
[2024-07-07 08:01] LABS: ALT 21 U/L (4-34); AST 65 U/L (14-36); African American GFR (CKD) 10 (>60 ml/min/1.73 sqM); Albumin 2.5 g/dL (3.5-5.0); Alkaline Phosphatase 85 U/L (38-126); Anion Gap 11 mmol/L; Blood Urea Nitrogen 74 mg/dL (7-17); Calcium 9.1 mg/dL (8.4-10.2); Carbon Dioxide 21 mmol/L (22-30); Chloride 93 mmol/L (98-107); Glucose 102 mg/dL (74-99); Magnesium 2.8 mg/dL (1.6-2.3); Non-African American GFR(CKD) 9 (>60 ml/min/1.73 sqM); Potassium 4.4 mmol/L (3.5-5.1); Sodium 125 mmol/L (137-145); Total Bilirubin 2.6 mg/dL (0.2-1.3); Total Protein 4.9 g/dL (6.3-8.2)
[2024-07-07 09:37] LABS: Iron 73 UG/DL (50-170); Total Iron Binding Capacity 216 UG/DL (228-460)
--- NOTE | 2024-07-07 10:02 | CA ---
Transthoracic Echo Report Name: Carol Ann Mcadams Age: 69 Gender: F : 1955 Exam Date: 07/07/2024 07:35 Exam Location: [place] [facility] Ht (in): 65 Wt (lb): Ordering Physician: Severo Suarez MD Attending/Referring Phys: Shirt Trimmer Randee Mcgee RDCS Procedure CPT: Indications: lightheaded Cardiac Hx: Technical Quality: Good Contrast 1: Total Dose (mL): Contrast 2: Total Dose (mL): MEASUREMENTS (Male / Female) Normal Values 2D ECHO LV Diastolic Diameter PLAX 4.2 cm 4.2 - 5.9 / 3.9 - 5.3 cm LV Systolic Diameter PLAX 2.4 cm IVS Diastolic Thickness 0.9 cm 0.6 - 1.0 / 0.6 - 0.9 cm LVPW Diastolic Thickness 0.8 cm 0.6 - 1.0 / 0.6 - 0.9 cm LV Relative Wall Thickness 0.4 LVOT Diameter 2.0 cm LV Diastolic Volume MOD BP 74.2 cm??? 67 - 155 / 56 - 104 cm??? LV Systolic Volume MOD BP 23.5 cm??? 22 - 58 / 19 - 49 cm??? LV Ejection Fraction MOD BP 68.4 % >= 55 % LV Diastolic Volume MOD 4C 85.5 cm??? LV Systolic Volume MOD 4C 26.7 cm??? LV Ejection Fraction MOD 4C 68.8 % LV Diastolic Length 4C 7.6 cm LV Systolic Length 4C 5.5 cm LV Diastolic Volume MOD 2C 60.4 cm??? LV Systolic Volume MOD 2C 19.4 cm??? LV Ejection Fraction MOD 2C 67.9 % LV Diastolic Length 2C 7.1 cm LV Systolic Length 2C 5.9 cm LA Volume 44.0 cm??? 18 - 58 / 22 - 52 cm??? Ascending Aorta Diameter 2.7 cm DOPPLER AV Peak Velocity 205.3 cm/s AV Peak Gradient 16.9 mmHg AV Mean Velocity 141.7 cm/s AV Mean Gradient 9.2 mmHg AV Velocity Time Integral 36.0 cm LVOT Peak Velocity 174.6 cm/s LVOT Peak Gradient 12.2 mmHg LVOT Velocity Time Integral 29.4 cm LVOT Stroke Volume 90.5 cm??? AV Area Cont Eq vti 2.5 cm??? AV Area Cont Eq pk 2.6 cm??? MV Peak Velocity 142.5 cm/s MV Peak Gradient 8.1 mmHg MV Mean Velocity 80.0 cm/s MV Mean Gradient 2.9 mmHg MV Velocity Time Integral 24.7 cm MV Area PHT 4.6 cm??? Mitral E Point Velocity 61.0 cm/s Mitral A Point Velocity 103.6 cm/s Mitral E to A Ratio 0.6 MV Deceleration Time 164.4 ms TR Peak Velocity 233.6 cm/s TR Peak Gradient 21.8 mmHg Right Atrial Pressure 5.0 mmHg Pulmonary Artery Systolic Pressu 26.8 mmHg Right Ventricular Systolic Press 26.8 mmHg PV Peak Velocity 80.1 cm/s PV Peak Gradient 2.6 mmHg FINDINGS Left Ventricle Left ventricular ejection fraction is estimated at 65-70 %. Left ventricular cavity size normal. Left ventricular wall thickness normal. No obvious regional wall motion abnormalities. Right Ventricle Normal right ventricular size and function. Right ventricular systolic pressure within normal limits. Right Atrium Normal right atrial size. Left Atrium Normal left atrial size. Mitral Valve Structurally normal mitral valve. No evidence for mitral valve prolapse. Mild mitral stenosis. No mitral regurgitation. Aortic Valve Aortic sclerosis with mild stenosis. Tricuspid Valve Structurally normal tricuspid valve. No tricuspid stenosis. Trace tricuspid regurgitation. Pulmonic Valve Pulmonic valve not well visualized. No pulmonic stenosis. No pulmonic regurgitation. Pericardium No pericardial effusion. Right and left pleural effusion. Aorta Normal size aortic root and proximal ascending aorta. CONCLUSIONS Hyperdynamic LV with EF between 65 to 70% Aortic sclerosis with mild stenosis Previewed by: Dr. Anton Fallon MD (Electronically Signed) Final Date: 07 July 2024 10:01
--- NOTE | 2024-07-07 10:28 | P.NPCON ---
History of Present Illness - Reason for Consult acute renal failure - History of Present Illness Reason for consultation: Acute kidney injury History of present illness: Patient is a 69-year-old female seen in renal consultation for acute kidney injury. Patient's creatinine dated May 04, 2024 was 2.52. This admission was 4.79 and is 4.64 today. Unknown baseline renal function. Patient is not a very reliable historian. Patient was brought to the hospital due to dizziness and generalized weakness. It is noted that she was also having vomiting for the last several days. Patient has history of liver cirrhosis and undergoes weekly paracentesis. Patient noted to be quite hypotensive with blood pressure as low as 79/50 this admission. She did receive 2 L of fluid bolus but is currently not on any maintenance fluids. Chest x-ray not suggestive of fluid overload. Echocardiogram showed preserved ejection fraction. No hydronephrosis noted on kidney ultrasound. I do not see any diuretics on her home medication list. Also no NSAIDs noted. She did require straight catheterization twice. Vital signs are stable. Blood pressure on the lower end. General: No acute distress. HEENT: Head exam is unremarkable. On nasal cannula. LUNGS: No audible rhonchi or wheezes. HEART: Rate and Rhythm are regular. ABDOMEN: Distention noted. EXTREMITITES: No edema. Past Medical History Past Medical History: Cancer Additional Past Medical History / Comment(s): Renal failure, liver failure, 5 stents History of Any Multi-Drug Resistant Organisms: None Reported Past Surgical History: Heart Catheterization With Stent Date of Last Stent Placement:: unknown Smoking Status: Former smoker Past Alcohol Use History: None Reported Past Drug Use History: None Reported Medications and Allergies Home Medications Medication Instructions Recorded Confirmed Type Aspirin [Adult Low Dose Aspirin EC] 81 mg PO DAILY 07/01/24 07/06/24 History Cider Vinegar [Apple Cider Vinegar] 300 mg PO DAILY 07/01/24 07/06/24 History Lactulose 10 gm PO BID PRN 07/01/24 07/06/24 History Midodrine [ProAmatine] 17.5 tab PO TID 07/01/24 07/06/24 History Pantoprazole [Protonix] 40 mg PO BID 07/01/24 07/06/24 History Rosuvastatin [Crestor] 20 mg PO HS 07/01/24 07/06/24 History Sodium Bicarbonate Tab 1,300 mg PO TID 07/01/24 07/06/24 History Hydrocortisone Cream 1 applic TOPICAL DAILY 07/06/24 07/06/24 History [Hydrocortisone 2.5% Cream] Ondansetron Odt [Zofran Odt] 4 mg PO Q6H PRN 07/06/24 07/06/24 History Rifaximin [Xifaxan] 550 mg PO BID 07/06/24 07/06/24 History Allergies Allergy/AdvReac Type Severity Reaction Status Date / Time GEMMA Inhibitors Allergy Swelling Verified 07/06/24 11:45 adhesive tape Allergy Rash/Hives Verified 07/06/24 11:45 isosorbide Allergy Anaphylaxis Verified 07/06/24 11:45 octreotide Allergy Hallucinati Verified 07/06/24 11:45 ons Physical Exam Vitals: Vital Signs Temp Pulse Pulse Resp BP BP Pulse Ox 07/07/24 08:42 85/45 07/07/24 08:20 97.9 F 96 16 67/44 97 07/07/24 06:39 84/55 07/07/24 04:00 97.6 F 97 16 79/50 96 07/06/24 23:25 97.4 F L 94 16 92/59 97 07/06/24 20:00 97.6 F 91 16 92/63 94 L 07/06/24 18:37 90/54 07/06/24 16:04 97.8 F 88 18 86/49 95 07/06/24 13:28 89 18 92/55 96 07/06/24 13:05 93 18 92/54 96 07/06/24 12:00 89 20 91/54 96 07/06/24 11:47 90 20 84/52 96 07/06/24 11:30 91/49 07/06/24 11:15 90/50 07/06/24 10:30 87 20 89/53 93 L 07/06/24 10:15 103/54 Intake and Output 07/06/24 07/07/24 07/07/24 22:59 06:59 14:59 Intake Total 600 Output Total 200 600 Balance 400 -600 Intake: IV 600 Sodium Chloride 0.9% 1, 600 000 ml @ 75 mls/hr IV . [id number] Rx#:[id number] Output: Urine 200 600 Straight 200 300 Other: Weight 87 kg Results - Lab Results Most recent lab results Calcium 9.1 mg/dL (8.4-10.2) 07/07/24 07:10 Magnesium 2.8 mg/dL (1.6-2.3) H 07/07/24 07:10 07/06/24 09:11 07/07/24 07:10 Assessment and Plan Plan: Assessment: 1. Acute kidney injury secondary to ATN secondary to hypotension. Creatinine 4.79 on admission and is 4.64 today. Creatinine 2.52 dated May 04, 2024. No hydronephrosis noted on kidney ultrasound. 2. Hypovolemic hyponatremia from poor intake and vomiting. Urine sodium less than 20. TSH noted to be low. 3. Liver cirrhosis. It is noted the patient gets weekly paracentesis. 4. Metabolic acidosis secondary to acute kidney injury. On oral bicarb. 5. Hepatic encephalopathy Plan: Start normal saline at 100 cc an hour. Maintain midodrine. 25 g IV albumin x 2 doses today. Villa catheter will be inserted due to urinary retention. Avoid nephrotoxins. Continue to monitor renal function and urine output. Check abdominal ultrasound. Continue to assess daily for need for renal replacement therapy. Thank you for the consultation. I will continue to follow the patient with you during her hospital stay.
--- NOTE | 2024-07-07 11:21 | US ---
EXAMINATION TYPE: US abdomen limited DATE OF EXAM: 07/07/2024 COMPARISON: US 07/06/24 CLINICAL INDICATION: Female, 69 years old with history of ascites; Ascites check TECHNIQUE: Grayscale imaging of the abdomen for ascites. FINDINGS: Ascites seen within all four quadrants of the abdomen. Largest pocket seen on the left side. IMPRESSION: At least moderate amount of intraperitoneal fluid or ascites is redemonstrated. [facility], , 07/07/2024 11:19 AM
[2024-07-07 12:07] LABS: Appearance,Urine Cloudy (Clear); Bacteria,Urine Few /hpf; Bilirubin,Urine Negative (Negative); Blood,Urine Small (Negative); Color,Urine Yellow; Glucose,Urine (UA) Negative (Negative); Ketones,Urine Trace (Negative); Leukocyte Esterase,Urine Trace (Negative); Mucus,Urine Few /hpf; Nitrite,Urine Negative (Negative); Protein,Urine 1+ (Negative); RBC,Urine 1 /hpf (0-5); Squamous Epithelial Cell,Urine 1 /hpf (0-4); Urobilinogen,Urine <2.0 mg/dL (<2.0); WBC,Urine 8 /hpf (0-5)
[2024-07-07] MEDS: ALBUMIN HUMAN 25% 50 ML in EMPTY BAG 1 BAG IVPB SCH ×2 (12:07→20:32)
[2024-07-07] MEDS: SODIUM CHLORIDE 0.9% 1,000 ML IV SCH (12:07)
[2024-07-07] MEDS: MIDODRINE 5 MG TAB PO SCH (12:09)
--- NOTE | 2024-07-07 13:28 | P.PN ---
Subjective Progress Note Date: 07/07/24 Hospital Course: 69 year old F with PMH of liver cirrhosis requiring weekly paracentesis and CKD presents to the ED for generalized weakness and hallucinations. History is supplemented by the as patient appears lethargic. Symptoms ongoing for the past 2 days. He reports she has started hallucinating today along with bouts of NBNB N/V. reports a poor appetite during this time. She reports lightheadedness with changes in position. 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 Patient denies any pain. She denies any headache, fever or chills, cough, chest pain, shortness of breath, palpitations, changes in bowel habits. She denies any numbness/tinging of the extremities. In the ED she underwent extensive evaluation. BP 75/58, HR 89, T 97.4F, RR 18, 90% on RA. CBC, Coag panel, CMP significant for WBC 2.98, Hg 9.8, Hct 30.2, MCV 101.2, Plt 106, PT 14, INR 1.3, Na 124, Cl 87, bicarb 21, BUN 72, Cr 4.79, glu 135, T. Bili 2.6, AST 68, alk phos 133, alb 2.9. Trop < 0.012. Mag 2.8. CXR LLL atelectasis/infiltrate. CT head no acute process. EKG sinus rhythm Admitted for further management of acute metabolic encephalopathy with hallucinations, KALANI on CKD, decompensated cirrhosis. IR consulted, nephrology consulted, GI consulted. 07/07: Per nephrology, patient was provided with 25 g of IV albumin x 2, Villa catheter was inserted. Per IR, no paracentesis planned due to hypotension. Discussed with patient's , he is not interested in hospice or palliative approach at this time, hopeful that his will be able to get liver transplant, reports that her liver specialist states that she would not tolerate the surgery, now is seeking care at another institution, considering [facility]. We did extensively discuss her current medical conditions, recurrent hospitalizations, he shared that she gets admitted every week at different hospitals and not getting desired help. He states that her home blood pressure is usually around 80s over 40s. I addressed very poor prognosis given her decompensated cirrhosis, acute kidney injury, multiple hospitalizations, generalized debility, patient's again was not interested in hospice at this time. Discussed with RN and case management, appears that patient gets discharged from the hospital's, stopped taking her medications and gets readmitted. Abdominal ultrasound showed ascites within all 4 quadrants of the abdomen. TTE with hyperdynamic LV EF 65 to 70%, aortic sclerosis with mild stenosis, no pericardial effusion. Subjective: Patient complains of abdominal discomfort, generalized bodyaches Pertinent positives and negatives as discussed above, a complete review of systems was performed and all other systems are negative. Vitals Signs Reviewed. General: [toxic], [no distress], [appears at stated age] Derm: [warm], [dry] Head: [atraumatic], [normocephalic], [symmetric] Eyes: [EOMI], [no lid lag], [anicteric sclera] Mouth: [no lip lesion], [mucus membranes moist] Cardiovascular: [S1S2 reg], [no murmur] Lungs: [Decreased breath sounds bibasilarly], [no rhonchi, no rales] , [no accessory muscle use] Abdominal: Generalized tenderness, distended, fluid wave appreciated], Ext: [no gross muscle atrophy], bilateral lower extremity edema 1+], [no contractures] Neuro: [ CN II-XI grossly intact], [no focal neuro deficits] Psych: [Lethargic, answers simple questions, follows simple commands Data Reviewed Today: Pertinent Labs: Sodium 125, bicarb 21, creatinine 4.64, glucose 102, magnesium 2.8, iron 73, ferritin 161, TSH less than 0.015, vitamin B12 2 [birth year]/1989 97, folate 15.3 Assessment and Plan: Acute metabolic encephalopathy secondary to KALANI and decompensated cirrhosis, hyponatremia -Ammonia level initially elevated at 176, trended down to 21 -TSH low 0.015, T4 pending -B12 level 2897, folate 15.3 -UA without signs of UTI Decompensated cirrhosis Chronic hypotension secondary to above Thrombocytopenia likely secondary to above Supratherapeutic INR likely secondary to liver cirrhosis -IR consulted for paracentesis -Continue rifaximin 550 mg p.o. twice daily -Continue home midodrine 10 mg 3 times daily AC -GI consulted -Patient will benefit from outpatient palliative care versus hospice, no family is not interested KALANI secondary to ATN in the settings of hypotension Hypovolemic hyponatremia Metabolic acidosis secondary to above -Nephrology following, started on normal saline at 100 cc/h, continue home midodrine 10 mg AC 3 times daily, provided with 2 doses of albumin 25% on 07/07 -Maintain Villa catheter for strict I's and O's Microcytic anemia -Hemoglobin stable, no folate or B12 deficiency DVT ppx: SCD Code status: Full code Anticipated discharge place: Pending clinical stability Anticipated discharge time: Pending clinical stability Objective - Vital Signs Vital signs: Vital Signs Temp 97.9 F 07/07/24 08:20 Pulse 96 07/07/24 08:20 Resp 16 07/07/24 08:20 BP 85/45 07/07/24 08:42 Pulse Ox 97 07/07/24 08:20 FiO2 Intake & Output 07/06/24 07/07/24 07/07/24 18:59 06:59 18:59 Intake Total 600 Output Total 200 600 Balance -200 0 Weight 90.718 kg 87 kg Intake: IV 600 Sodium Chloride 0.9% 1, 600 000 ml @ 75 mls/hr IV . [id number] ONE Rx#:[id number] Output: Urine 200 600 Straight 200 300 - Labs CBC & Chem 7: 07/06/24 09:11 07/07/24 07:10 Labs: Abnormal Lab Results - Last 24 Hours (Table) 07/06/24 07/06/24 07/06/24 Range/Units 14:32 15:40 15:40 Sodium (137-145) mmol/L Chloride (98-107) mmol/L Carbon Dioxide (22-30) mmol/L BUN (7-17) mg/dL Creatinine (0.52-1.04) mg/dL Glucose (74-99) mg/dL Magnesium (1.6-2.3) mg/dL TIBC (228-460) UG/DL Transferrin (204.0-354.0) mg/dL Total Bilirubin (0.2-1.3) mg/dL AST (14-36) U/L Ammonia 176 H (<30) umol/L Total Protein (6.3-8.2) g/dL Albumin (3.5-5.0) g/dL Vitamin B12 (200.0-944.0) pg/mL TSH (0.465-4.680) mIU/L Urine Appearance (Clear) Urine Protein (Negative) Urine Ketones (Negative) Urine Blood (Negative) Ur Leukocyte Esterase (Negative) Urine WBC (0-5) /hpf Urine Bacteria (None) /hpf Urine Mucus (None) /hpf Urine Osmolality 398 L (400-1100) mOsm/kg Ur Random Sodium <20 L (40-220) mmol/L 07/07/24 07/07/24 07/07/24 Range/Units 06:00 07:10 10:40 Sodium 125 L (137-145) mmol/L Chloride 93 L (98-107) mmol/L Carbon Dioxide 21 L (22-30) mmol/L BUN 74 H (7-17) mg/dL Creatinine 4.64 H (0.52-1.04) mg/dL Glucose 102 H (74-99) mg/dL Magnesium 2.8 H (1.6-2.3) mg/dL TIBC 216 L (228-460) UG/DL Transferrin 154.0 L (204.0-354.0) mg/dL Total Bilirubin 2.6 H (0.2-1.3) mg/dL AST 65 H (14-36) U/L Ammonia (<30) umol/L Total Protein 4.9 L (6.3-8.2) g/dL Albumin 2.5 L (3.5-5.0) g/dL Vitamin B12 2897.0 H (200.0-944.0) pg/mL TSH <0.015 L (0.465-4.680) mIU/L Urine Appearance Cloudy H (Clear) Urine Protein 1+ H (Negative) Urine Ketones Trace H (Negative) Urine Blood Small H (Negative) Ur Leukocyte Esterase Trace H (Negative) Urine WBC 8 H (0-5) /hpf Urine Bacteria Few H (None) /hpf Urine Mucus Few H (None) /hpf Urine Osmolality (400-1100) mOsm/kg Ur Random Sodium (40-220) mmol/L
--- NOTE | 2024-07-07 15:54 | P.CONS ---
History of Present Illness - Reason for Consult Consult date: 07/07/24 Hyperbilirubinemia Requesting physician: Stefano Gabriel - Chief Complaint Altered mental status changes - History of Present Illness This is a pleasant 69-year-old female who was brought in by EMS for concerns of altered mental status changes. Patient currently alert and oriented to self and place however is a poor historian and confused with some of her history. Leydi spencer's at bedside reports patient has history of liver disease diagnosed 5 to 10 years ago and follows with Dr. 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 Underlying liver disease secondary to liver cirrhosis. Patient has past medical history including diabetes mellitus, chronic renal failure, decompensated liver cirrhosis with ascites requiring weekly paracentesis, obesity, and coronary artery disease status post cardiac stents. Patient was noted to be confused on admission, mildly elevated bilirubin and AST which is consistent with underlying liver disease elevated ammonia at 176 on admission. Gastroenterology consulted for hyperbilirubinemia. Patient was started on lactulose 30 g 3 times daily. Patient's home meds include lactulose 10 mg twice daily as needed, patient states she was taking it. Also on Xifaxan [address] twice daily[address] Brain [address] with no acute intracranial process. Review of Systems REVIEW OF SYSTEMS: CARDIOPULMONARY: No chest pain or shortness of breath. Gastrointestinal: No abdominal pain. No nausea or vomiting. No hematemesis, coffee-ground emesis. No rectal bleeding, or melena. GENITOURINARY: No dysuria or hematuria. MUSCULOSKELETAL: Reports normal range of motion., Joint pain. SKIN: No rashes. Mild jaundice. ENDOCRINE: No chills, fevers. No excessive weight gain or loss. No polydipsia or polyuria. PSYCHIATRIC: Unremarkable. NEUROLOGY: Patient confused, hyperammonemia. ENT: Vision unremarkable. CONSTITUTIONAL: No recent weight loss. No fever, chills, night sweats. Past Medical History Past Medical History: Cancer Additional Past Medical History / Comment(s): Renal failure, liver failure, 5 stents History of Any Multi-Drug Resistant Organisms: None Reported Past Surgical History: Heart Catheterization With Stent Date of Last Stent Placement:: unknown Smoking Status: Former smoker Past Alcohol Use History: None Reported Past Drug Use History: None Reported Medications and Allergies Home Medications Medication Instructions Recorded Confirmed Type Aspirin [Adult Low Dose Aspirin EC] 81 mg PO DAILY 07/01/24 07/06/24 History Cider Vinegar [Apple Cider Vinegar] 300 mg PO DAILY 07/01/24 07/06/24 History Lactulose 10 gm PO BID PRN 07/01/24 07/06/24 History Midodrine [ProAmatine] 17.5 tab PO TID 07/01/24 07/06/24 History Pantoprazole [Protonix] 40 mg PO BID 07/01/24 07/06/24 History Rosuvastatin [Crestor] 20 mg PO HS 07/01/24 07/06/24 History Sodium Bicarbonate Tab 1,300 mg PO TID 07/01/24 07/06/24 History Hydrocortisone Cream 1 applic TOPICAL DAILY 07/06/24 07/06/24 History [Hydrocortisone 2.5% Cream] Ondansetron Odt [Zofran Odt] 4 mg PO Q6H PRN 07/06/24 07/06/24 History Rifaximin [Xifaxan] 550 mg PO BID 07/06/24 07/06/24 History Allergies Allergy/AdvReac Type Severity Reaction Status Date / Time GEMMA Inhibitors Allergy Swelling Verified 07/06/24 11:45 adhesive tape Allergy Rash/Hives Verified 07/06/24 11:45 isosorbide Allergy Anaphylaxis Verified 07/06/24 11:45 octreotide Allergy Hallucinati Verified 07/06/24 11:45 ons Physical Exam Vitals: Vital Signs Temp Pulse Pulse Resp BP BP Pulse Ox 07/07/24 08:42 85/45 07/07/24 08:20 97.9 F 96 16 67/44 97 07/07/24 06:39 84/55 07/07/24 04:00 97.6 F 97 16 79/50 96 07/06/24 23:25 97.4 F L 94 16 92/59 97 07/06/24 20:00 97.6 F 91 16 92/63 94 L 07/06/24 18:37 90/54 07/06/24 16:04 97.8 F 88 18 86/49 95 07/06/24 13:28 89 18 92/55 96 07/06/24 13:05 93 18 92/54 96 07/06/24 12:00 89 20 91/54 96 07/06/24 11:47 90 20 84/52 96 07/06/24 11:30 91/49 07/06/24 11:15 90/50 07/06/24 10:30 87 20 89/53 93 L 07/06/24 10:15 103/54 07/06/24 09:45 92/49 07/06/24 09:23 89 18 89/47 94 L Intake and Output 07/06/24 07/07/24 07/07/24 22:59 06:59 14:59 Intake Total 600 Output Total 200 600 Balance 400 -600 Intake: IV 600 Sodium Chloride 0.9% 1, 600 000 ml @ 75 mls/hr IV . [id number] ONE Rx#:[id number] Output: Urine 200 600 Straight 200 300 Other: Weight 87 kg General appearance: The patient is alert, oriented to self and place, appears in no acute distress. HET: Head is normocephalic and atraumatic. Conjunctiva pink. Sclera anicteric. Neck: Supple without lymphadenopathy. Trachea midline. Heart: Regular. Lungs: Equal expansion, normal respiratory effort. Abdomen: Soft, nontender, mild ascites, nondistended. Skin: No rashes. Mild jaundice. Extremities: Normal skin color and turgor. No pedal edema. Neurological: Alert and oriented to self and place, poor historian with some confusion. Slow to respond. Results CBC & Chem 7: 07/06/24 09:11 07/07/24 07:10 Labs: Abnormal Lab Results - Last 24 Hours (Table) 07/06/24 07/06/24 07/06/24 Range/Units 09:11 09:11 09:11 RBC 2.98 L (3.80-5.40) m/uL Hgb 9.8 L D (11.4-16.0) gm/dL Hct 30.2 L (34.0-46.0) % MCV 101.2 H D (80.0-100.0) fL RDW 23.1 H (11.5-15.5) % Plt Count 106 L (150-450) k/uL Lymphocytes # (Manual) 0.68 L (1.0-4.8) k/uL Macrocytosis Marked A PT 14.0 H (10.0-12.5) sec INR 1.3 H (<1.2) Sodium 124 L (137-145) mmol/L Chloride 87 L (98-107) mmol/L Carbon Dioxide 21 L (22-30) mmol/L BUN 72 H (7-17) mg/dL Creatinine 4.79 H (0.52-1.04) mg/dL Glucose 135 H (74-99) mg/dL Magnesium 2.8 H (1.6-2.3) mg/dL Total Bilirubin 2.6 H (0.2-1.3) mg/dL AST 68 H (14-36) U/L Alkaline Phosphatase 133 H (38-126) U/L Ammonia (<30) umol/L Total Protein 5.4 L (6.3-8.2) g/dL Albumin 2.9 L (3.5-5.0) g/dL TSH (0.465-4.680) mIU/L Ur Random Sodium (40-220) mmol/L 07/06/24 07/06/24 07/07/24 Range/Units 14:32 15:40 06:00 RBC (3.80-5.40) m/uL Hgb (11.4-16.0) gm/dL Hct (34.0-46.0) % MCV (80.0-100.0) fL RDW (11.5-15.5) % Plt Count (150-450) k/uL Lymphocytes # (Manual) (1.0-4.8) k/uL Macrocytosis PT (10.0-12.5) sec INR (<1.2) Sodium (137-145) mmol/L Chloride (98-107) mmol/L Carbon Dioxide (22-30) mmol/L BUN (7-17) mg/dL Creatinine (0.52-1.04) mg/dL Glucose (74-99) mg/dL Magnesium (1.6-2.3) mg/dL Total Bilirubin (0.2-1.3) mg/dL AST (14-36) U/L Alkaline Phosphatase (38-126) U/L Ammonia 176 H (<30) umol/L Total Protein (6.3-8.2) g/dL Albumin (3.5-5.0) g/dL TSH <0.015 L (0.465-4.680) mIU/L Ur Random Sodium <20 L (40-220) mmol/L 07/07/24 Range/Units 07:10 RBC (3.80-5.40) m/uL Hgb (11.4-16.0) gm/dL Hct (34.0-46.0) % MCV (80.0-100.0) fL RDW (11.5-15.5) % Plt Count (150-450) k/uL Lymphocytes # (Manual) (1.0-4.8) k/uL Macrocytosis PT (10.0-12.5) sec INR (<1.2) Sodium 125 L (137-145) mmol/L Chloride 93 L (98-107) mmol/L Carbon Dioxide 21 L (22-30) mmol/L BUN 74 H (7-17) mg/dL Creatinine 4.64 H (0.52-1.04) mg/dL Glucose 102 H (74-99) mg/dL Magnesium 2.8 H (1.6-2.3) mg/dL Total Bilirubin 2.6 H (0.2-1.3) mg/dL AST 65 H (14-36) U/L Alkaline Phosphatase (38-126) U/L Ammonia (<30) umol/L Total Protein 4.9 L (6.3-8.2) g/dL Albumin 2.5 L (3.5-5.0) g/dL TSH (0.465-4.680) mIU/L Ur Random Sodium (40-220) mmol/L Comments: Abdominal ultrasound reports at least moderate amount of intraperitoneal fluid or ascites is redemonstrated. 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 Patient was noted to have elevated ammonia consistent with hepatic and altered mental status changes consistent with hepatic encephalopathy. She undergoes weekly paracentesis last 06/30/2024 and patient is scheduled for tomorrow. Will continue to follow. Agree with continued lactulose 30 g 3 times daily titrate to have 3-4 bowel movements and continue with Xifaxan 550 mg twice daily. Current Visit: Yes Status: Acute Code(s): K74.60 - UNSPECIFIED CIRRHOSIS OF LIVER SNOMED Code(s): 47342026 (2) Hepatic encephalopathy Current Visit: Yes Status: Acute Code(s): K76.82 - HEPATIC ENCEPHALOPATHY SNOMED Code(s): 76413341 (3) Ascites Current Visit: Yes Status: Acute Code(s): R18.8 - OTHER ASCITES SNOMED Code(s): 853794257 (4) Chronic renal failure Narrative/Plan: Acute kidney injury secondary to ATN secondary to hypotension on chronic renal failure Current Visit: Yes Status: Acute Code(s): N18.9 - CHRONIC KIDNEY DISEASE, UNSPECIFIED SNOMED Code(s): 50099031 (5) Thrombocytopenia Narrative/Plan: Secondary to underlying liver disease and bone marrow suppression Current Visit: Yes Status: Acute Code(s): D69.6 - THROMBOCYTOPENIA, UNSPECIFIED SNOMED Code(s): 641292046 (6) Anemia Narrative/Plan: Secondary to underlying liver disease Current Visit: Yes Status: Acute Code(s): D64.9 - ANEMIA, UNSPECIFIED SNOMED Code(s): 214777475 (7) Hyponatremia Narrative/Plan: Nephrology following Current Visit: Yes Status: Acute Code(s): E87.1 - HYPO-OSMOLALITY AND HYPONATREMIA SNOMED Code(s): 86377473 Plan: 1. Continue symptomatic and supportive care 2. Ultrasound and paracentesis ordered per medical team. Patient's discharge paperwork from [facility] hepatology/nephrology recommend no more than 4 to 5 L removed per paracentesis secondary to kidney disease 3. Patient may have renal diet 4. Continue lactulose 30 g 3 times daily, titrate to have 3-4 bowel movements a day 5. Continue with Xifaxan 550 mg twice daily 6. Continue with recommendations from nephrology 7. Recommend follow-up with Dr. Nichols and discharge Thank you for this consultation, we will continue to follow. Dr. Daysi So I agree with the dictator's note, documented as a scribe by Becca Astorga.
[2024-07-08 08:34] LABS: ALT 19 U/L (4-34); African American GFR (CKD) 10 (>60 ml/min/1.73 sqM); Albumin 3.1 g/dL (3.5-5.0); Anion Gap 15 mmol/L; Blood Urea Nitrogen 84 mg/dL (7-17); Calcium 9.3 mg/dL (8.4-10.2); Carbon Dioxide 21 mmol/L (22-30); Chloride 93 mmol/L (98-107); Glucose 99 mg/dL (74-99); Non-African American GFR(CKD) 9 (>60 ml/min/1.73 sqM); Sodium 129 mmol/L (137-145); Total Bilirubin 3.6 mg/dL (0.2-1.3); Total Protein 5.4 g/dL (6.3-8.2)
[2024-07-08 08:50] LABS: T4, Free (Free Thyroxine) 1.16 ng/dL (0.78-2.19)
[2024-07-08 08:54] LABS: AST 65 U/L (14-36); Alkaline Phosphatase 57 U/L (38-126); Magnesium 2.8 mg/dL (1.6-2.3); Potassium 4.7 mmol/L (3.5-5.1)
[2024-07-08] MEDS: ALBUMIN HUMAN 25% 50 ML in EMPTY BAG 1 BAG IVPB SCH ×2 (09:22→12:20)
--- NOTE | 2024-07-08 09:55 | P.PN ---
Subjective Patient is seen in follow-up for acute kidney injury. Renal function stable. Blood pressure improved. Scheduled for paracentesis today. Oral intake is poor. Vital signs are stable. General: No acute distress. HEENT: Head exam is unremarkable. LUNGS: No audible rhonchi or wheezes. HEART: Rate and Rhythm are regular. ABDOMEN: Distention noted. Mild generalized tenderness. EXTREMITITES: 1+ edema. Objective - Vital Signs Vital signs: Vital Signs Temp 97.7 F 07/08/24 08:00 Pulse 92 07/08/24 08:00 Resp 18 07/08/24 08:00 BP 97/63 07/08/24 08:00 Pulse Ox 92 L 07/08/24 08:00 FiO2 Intake & Output 07/07/24 07/08/24 07/08/24 18:59 06:59 18:59 Intake Total 240 200 Output Total 150 Balance 240 50 Weight 85.1 kg Intake: Oral 240 200 Output: Urine 150 Other: Voiding Method Indwelling Catheter - Labs CBC & Chem 7: 07/06/24 09:11 07/08/24 07:21 Labs: Abnormal Lab Results - Last 24 Hours (Table) 07/06/24 07/07/24 07/07/24 Range/Units 15:40 06:00 10:40 Sodium (137-145) mmol/L Chloride (98-107) mmol/L Carbon Dioxide (22-30) mmol/L BUN (7-17) mg/dL Creatinine (0.52-1.04) mg/dL Magnesium (1.6-2.3) mg/dL Total Bilirubin (0.2-1.3) mg/dL AST (14-36) U/L Total Protein (6.3-8.2) g/dL Albumin (3.5-5.0) g/dL Vitamin B12 2897.0 H (200.0-944.0) pg/mL Urine Appearance Cloudy H (Clear) Urine Protein 1+ H (Negative) Urine Ketones Trace H (Negative) Urine Blood Small H (Negative) Ur Leukocyte Esterase Trace H (Negative) Urine WBC 8 H (0-5) /hpf Urine Bacteria Few H (None) /hpf Urine Mucus Few H (None) /hpf Urine Osmolality 398 L (400-1100) mOsm/kg 07/08/24 Range/Units 07:21 Sodium 129 L (137-145) mmol/L Chloride 93 L (98-107) mmol/L Carbon Dioxide 21 L (22-30) mmol/L BUN 84 H (7-17) mg/dL Creatinine 4.76 H (0.52-1.04) mg/dL Magnesium 2.8 H (1.6-2.3) mg/dL Total Bilirubin 3.6 H (0.2-1.3) mg/dL AST 65 H (14-36) U/L Total Protein 5.4 L (6.3-8.2) g/dL Albumin 3.1 L (3.5-5.0) g/dL Vitamin B12 (200.0-944.0) pg/mL Urine Appearance (Clear) Urine Protein (Negative) Urine Ketones (Negative) Urine Blood (Negative) Ur Leukocyte Esterase (Negative) Urine WBC (0-5) /hpf Urine Bacteria (None) /hpf Urine Mucus (None) /hpf Urine Osmolality (400-1100) mOsm/kg Assessment and Plan Plan: Assessment: 1. Acute kidney injury secondary to ATN secondary to hypotension. Creatinine 4.79 on admission and is stable at 4.76 today. Creatinine 2.52 dated May 04, 2024. No hydronephrosis noted on kidney ultrasound. 2. Hypovolemic hyponatremia from poor intake and vomiting. Urine sodium less than 20. TSH noted to be low. Improved. Now appears hypervolemic. 3. Liver cirrhosis. Patient gets weekly paracentesis. 4. Metabolic acidosis secondary to acute kidney injury. On oral bicarb. 5. Hepatic encephalopathy. Mentation better. 6. Urinary retention. Has Villa catheter. Plan: Hep-Lock IV fluids. Encouraged oral intake. Add fluid restriction. Maintain midodrine. 25 g IV albumin pre and post paracentesis. Paracentesis pending. Add spironolactone 25 mg twice daily. Avoid nephrotoxins. Continue to monitor renal function and urine output. Continue to assess daily for need for renal replacement therapy.
--- NOTE | 2024-07-08 11:26 | P.PN ---
Subjective Progress Note Date: 07/08/24 Hospital Course: 69 year old F with PMH of liver cirrhosis requiring weekly paracentesis and CKD presents to the ED for generalized weakness and hallucinations. History is supplemented by the as patient appears lethargic. Symptoms ongoing for the past 2 days. He reports she has started hallucinating today along with bouts of NBNB N/V. reports a poor appetite during this time. She reports lightheadedness with changes in position. 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 Patient denies any pain. She denies any headache, fever or chills, cough, chest pain, shortness of breath, palpitations, changes in bowel habits. She denies any numbness/tinging of the extremities. In the ED she underwent extensive evaluation. BP 75/58, HR 89, T 97.4F, RR 18, 90% on RA. CBC, Coag panel, CMP significant for WBC 2.98, Hg 9.8, Hct 30.2, MCV 101.2, Plt 106, PT 14, INR 1.3, Na 124, Cl 87, bicarb 21, BUN 72, Cr 4.79, glu 135, T. Bili 2.6, AST 68, alk phos 133, alb 2.9. Trop < 0.012. Mag 2.8. CXR LLL atelectasis/infiltrate. CT head no acute process. EKG sinus rhythm Admitted for further management of acute metabolic encephalopathy with hallucinations, KALANI on CKD, decompensated cirrhosis. IR consulted, nephrology consulted, GI consulted. 07/07: Per nephrology, patient was provided with 25 g of IV albumin x 2, Villa catheter was inserted. Per IR, no paracentesis planned due to hypotension. Discussed with patient's , he is not interested in hospice or palliative approach at this time, hopeful that his will be able to get liver transplant, reports that her liver specialist states that she would not tolerate the surgery, now is seeking care at another institution, considering [facility]. We did extensively discuss her current medical conditions, recurrent hospitalizations, he shared that she gets admitted every week at different hospitals and not getting desired help. He states that her home blood pressure is usually around 80s over 40s. I addressed very poor prognosis given her decompensated cirrhosis, acute kidney injury, multiple hospitalizations, generalized debility, patient's again was not interested in hospice at this time. Discussed with RN and case management, appears that patient gets discharged from the hospital's, stopped taking her medications and gets readmitted. Abdominal ultrasound showed ascites within all 4 quadrants of the abdomen. TTE with hyperdynamic LV EF 65 to 70%, aortic sclerosis with mild stenosis, no pericardial effusion. 07/08 IR for paracenthesis , IV fluids stopped, now on fluid restriction, started on spironolactone 25 mg bid by nephr, Discussed with CM, refuses p lacement and home care, understands that she's a 2 person assist. Subjective: abdominal discomfort improved, generalized body aches Pertinent positives and negatives as discussed above, a complete review of systems was performed and all other systems are negative. Vitals Signs Reviewed. General: [toxic], [no distress], [appears at stated age] Derm: [warm], [dry] Head: [atraumatic], [normocephalic], [symmetric] Eyes: [EOMI], [no lid lag], [anicteric sclera] Mouth: [no lip lesion], [mucus membranes moist] Cardiovascular: [S1S2 reg], [no murmur] Lungs: [Decreased breath sounds bibasilarly], [no rhonchi, no rales] , [no accessory muscle use] Abdominal: Generalized tenderness, distended, fluid wave appreciated], Ext: [no gross muscle atrophy], bilateral lower extremity edema 1+], [no con tractures] Neuro: [ CN II-XI grossly intact], [no focal neuro deficits] Psych: [Lethargic, answers simple questions, follows simple commands Data Reviewed Today: Pertinent Labs: Sodium 129, bicarb 21, creatinine 4.76,, glucose 99, magnesium 2.8, iron 73, ferritin 161, T4 normal Assessment and Plan: Acute metabolic encephalopathy secondary to KALANI and decompensated cirrhosis, hyponatremia -Ammonia level initially elevated at 176, trended down to 21 -TSH low 0.015, T4 normal -B12 level 2897, folate 15.3 -UA without signs of UTI Decompensated cirrhosis Chronic hypotension secondary to above Thrombocytopenia likely secondary to above Supratherapeutic INR likely secondary to liver cirrhosis -IR consulted for paracentesis, done 07/08 -Continue rifaximin 550 mg p.o. twice daily -Continue home midodrine 10 mg 3 times daily AC -continue lactulose 30 g tid,, goal BM 3-4 a day -GI consulted -Patient will benefit from outpatient palliative care versus hospice, no family is not interested KALANI secondary to ATN in the settings of hypotension Hypovolemic hyponatremia Metabolic acidosis secondary to above -Nephrology following, stopped normal saline at 100 cc/h,started on fluid restriction, added spironolactone 25 bid, continue home midodrine 10 mg AC 3 times daily, provided with 2 doses of albumin 25% on 07/07 -Maintain Villa catheter for strict I's and O's Microcytic anemia -Hemoglobin stable, no folate or B12 deficiency DVT ppx: SCD Code status: Full code Anticipated discharge place: home per request Anticipated discharge time: Pending clinical stability Objective - Vital Signs Vital signs: Vital Signs Temp 97.7 F 07/08/24 08:00 Pulse 89 07/08/24 10:59 Resp 16 07/08/24 10:59 BP 92/46 07/08/24 10:59 Pulse Ox 97 07/08/24 10:59 FiO2 Intake & Output 07/07/24 07/08/24 07/08/24 18:59 06:59 18:59 Intake Total 240 200 Output Total 150 Balance 240 50 Weight 85.1 kg Intake: Oral 240 200 Output: Urine 150 Other: Voiding Method Indwelling Catheter Indwelling Catheter - Labs CBC & Chem 7: 07/06/24 09:11 07/08/24 07:21 Labs: Abnormal Lab Results - Last 24 Hours (Table) 07/07/24 07/08/24 Range/Units 10:40 07:21 Sodium 129 L (137-145) mmol/L Chloride 93 L (98-107) mmol/L Carbon Dioxide 21 L (22-30) mmol/L BUN 84 H (7-17) mg/dL Creatinine 4.76 H (0.52-1.04) mg/dL Magnesium 2.8 H (1.6-2.3) mg/dL Total Bilirubin 3.6 H (0.2-1.3) mg/dL AST 65 H (14-36) U/L Total Protein 5.4 L (6.3-8.2) g/dL Albumin 3.1 L (3.5-5.0) g/dL Urine Appearance Cloudy H (Clear) Urine Protein 1+ H (Negative) Urine Ketones Trace H (Negative) Urine Blood Small H (Negative) Ur Leukocyte Esterase Trace H (Negative) Urine WBC 8 H (0-5) /hpf Urine Bacteria Few H (None) /hpf Urine Mucus Few H (None) /hpf
[2024-07-08] MEDS: SPIRONOLACTONE 25 MG TAB PO SCH (12:20)
--- NOTE | 2024-07-08 15:11 | US ---
EXAMINATION TYPE: US paracentesis abd w/image DATE OF EXAM: 07/08/2024 CLINICAL HISTORY: 69-year-old female with cirrhosis, distention, ascites, and pain The procedure was discussed with the patient. The risks, complications, benefits, and alternatives we re discussed and any questions were answered. Informed consent was obtained. The patient was placed s upine on the ultrasound table and prepped and draped in the usual sterile fashion. All elements of maximal barrier technique were utilized. Ultrasound was utilized to determine the precise skin entry site along the right lower quadrant. A 5 Faroese One-Step catheter and trocar technique was utilized to access the ascites collection under direct ultrasound guidance. Approximately 5.5 liters of cloudy hai fluid was removed. A 50 mL aspirate was collected in a separate syringe and sent for laboratory analysis. Catheter was removed, hemostasis obtained, and a dressing placed. The patient was stable throughout the procedure and remained stable upon discharge from Department of Radiology. IMPRESSION: Successful diagnostic and therapeutic paracentesis under ultrasound guidance. 5.5 L of cloudy hai f luid removed. [facility], , 07/08/2024 3:08 PM
--- NOTE | 2024-07-08 15:29 | P.PN ---
Subjective Progress Note Date: 07/08/24 Principal diagnosis: Transaminitis This is a pleasant 69-year-old female who was brought in by EMS for concerns of altered mental status changes. Patient currently alert and oriented to self and place however is a poor historian and confused with some of her history. Patient's at bedside reports patient has history of liver disease diagnosed 5 to 10 years ago and follows with Dr. Nichols [facility] who is a pulp mixer and transplant jewelry bearing maker. Underlying liver disease secondary to liver cirrhosis. Patient has past medical history includi ng diabetes mellitus, chronic renal failure, decompensated liver cirrhosis with ascites requiring weekly paracentesis, obesity, and coronary artery disease status post cardiac stents. Patient was noted to be confused on admission, mildly elevated bilirubin and AST which is consistent with underlying liver disease elevated ammonia at 176 on admission. Gastroenterology consulted for hyperbilirubinemia. Patient was started on lactulose 30 g 3 times daily. Patient's home meds include lactulose 10 mg twice daily as needed, patient states she was taking it. Also on Xifaxan 550 mg twice daily. Brain CT with no acute intracranial process. July 08, 2024 Patient seen and examined today as a follow-up. No acute changes through the night. Some improved mentation. No abdominal pain nausea or vomiting. Undergoing paracentesis today. Slight improvement in sodium, total bilirubin 3.6 AST 65 ALT 19 alkaline phosphatase 57 Objective - Vital Signs Vital signs: Vital Signs Temp 97.7 F 07/08/24 08:00 Pulse 92 07/08/24 08:00 Resp 18 07/08/24 08:00 BP 97/63 07/08/24 08:00 Pulse Ox 92 L 07/08/24 08:00 FiO2 Intake & Output 07/07/24 07/08/24 07/08/24 18:59 06:59 18:59 Intake Total 240 200 Output Total 150 Balance 240 50 Weight 85.1 kg Intake: Oral 240 200 Output: Urine 150 Other: Voiding Method Indwelling Catheter - Exam General appearance: The patient is alert, oriented, appears in no acute distress. HET: Head is normocephalic and atraumatic. Conjunctiva pink. Sclera anicteric. Neck: Supple without lymphadenopathy. Abdomen: Soft, nontender, nondistended. Extremities: Normal skin color and turgor. No pedal edema Skin: No rashes, no jaundice Neurological: No focal deficits. Alert and oriented. - Labs CBC & Chem 7: 07/06/24 09:11 07/08/24 07:21 Labs: Abnormal Lab Results - Last 24 Hours (Table) 07/06/24 07/07/24 07/08/24 Range/Units 15:40 10:40 07:21 Sodium 129 L (137-145) mmol/L Chloride 93 L (98-107) mmol/L Carbon Dioxide 21 L (22-30) mmol/L BUN 84 H (7-17) mg/dL Creatinine 4.76 H (0.52-1.04) mg/dL Magnesium 2.8 H (1.6-2.3) mg/dL Total Bilirubin 3.6 H (0.2-1.3) mg/dL AST 65 H (14-36) U/L Total Protein 5.4 L (6.3-8.2) g/dL Albumin 3.1 L (3.5-5.0) g/dL Urine Appearance Cloudy H (Clear) Urine Protein 1+ H (Negative) Urine Ketones Trace H (Negative) Urine Blood Small H (Negative) Ur Leukocyte Esterase Trace H (Negative) Urine WBC 8 H (0-5) /hpf Urine Bacteria Few H (None) /hpf Urine Mucus Few H (None) /hpf Urine Osmolality 398 L (400-1100) mOsm/kg Assessment and Plan (1) Liver cirrhosis Narrative/Plan: 69-year-old female with altered mental status changes likely secondary from hepatic encephalopathy in the setting of underlying liver cirrhosis sounds like secondary to 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 Patient was noted to have elevated ammonia consistent with hepatic and altered mental status changes consistent with hepatic encephalopathy. She undergoes weekly paracentesis last 06/30/2024 and patient is scheduled for tomorrow. Will continue to follow. Agree with continued lactulose 30 g 3 times daily titrate to have 3-4 bowel movements and continue with Xifaxan 550 mg twice daily. Current Visit: Yes Status: Acute Code(s): K74.60 - UNSPECIFIED CIRRHOSIS OF LIVER SNOMED Code(s): 74727403 (2) Hepatic encephalopathy Narrative/Plan: Continue lactulose and Xifaxan Current Visit: Yes Status: Acute Code(s): K76.82 - HEPATIC ENCEPHALOPATHY SNOMED Code(s): 97169805 (3) Ascites Current Visit: Yes Status: Acute Code(s): R18.8 - OTHER ASCITES SNOMED Code(s): 457647555 (4) Chronic renal failure Narrative/Plan: Acute kidney injury secondary to ATN secondary to hypotension on chronic renal failure Current Visit: Yes Status: Acute Code(s): N18.9 - CHRONIC KIDNEY DISEASE, UNSPECIFIED SNOMED Code(s): 07968399 (5) Thrombocytopenia Narrative/Plan: Secondary to underlying liver disease and bone marrow suppression Current Visit: Yes Status: Acute Code(s): D69.6 - THROMBOCYTOPENIA, UNSPECIFIED SNOMED Code(s): 147407440 (6) Anemia Narrative/Plan: Secondary to underlying liver disease Current Visit: Yes Status: Acute Code(s): D64.9 - ANEMIA, UNSPECIFIED SNOMED Code(s): 275870434 (7) Hyponatremia Narrative/Plan: Nephrology following Current Visit: Yes Status: Acute Code(s): E87.1 - HYPO-OSMOLALITY AND HYPONATREMIA SNOMED Code(s): 41025429 Plan: 1. Continue symptomatic and supportive care 2. Paracentesis today. Patient's discharge paperwork from [facility] hepatology/nephrology recommend no more than 4 to 5 L removed per paracentesis secondary to kidney disease 3. Patient may have renal diet 4. Continue lactulose 30 g 3 times daily, titrate to have 3-4 bowel movements a day 5. Continue with Xifaxan 550 mg twice daily 6. Continue with recommendations from nephrology 7. Recommend follow-up with Dr. Nichols and discharge Thank you for this consultation, we will continue to follow. Dr. Daysi So I agree with the dictator's note, documented as a scribe by Becca Astorga.
[2024-07-08 16:19] LABS: Appearance,BF Cloudy (Clear)
[2024-07-08 19:52] LABS: T. Protein, Body Fluid Source Ascites; Total Protein, Body Fluid 1400 mg/dL
[2024-07-09 06:33] LABS: Basophils # (A) 0.02 10*3/uL (0.00-0.10); Basophils % (A) 0.3 %; HCT 21.6 % (37.2-46.3); HGB 7.1 g/dL (12.0-15.0); Lymphocytes # (A) 0.42 10*3/uL (0.90-5.00); Lymphocytes % (A) 5.4 %; MCH 33.5 pg (27.0-32.0); MCHC 32.9 g/dL (32.0-37.0); MCV 101.9 fL (80.0-97.0); Mean Platelet Volume 10.3 fL (9.5-12.2); Monocytes # (A) 0.58 10*3/uL (0.20-1.00); Monocytes % (A) 7.4 %; Neutrophils # (A) 6.75 10*3/uL (1.80-7.70); Neutrophils % (A) 86.5 %; RBC 2.12 10*6/uL (4.10-5.20)
[2024-07-09 06:46] LABS: ALT 15 U/L (4-34); AST 38 U/L (14-36); African American GFR (CKD) 10 (>60 ml/min/1.73 sqM); Albumin 2.9 g/dL (3.5-5.0); Alkaline Phosphatase 55 U/L (38-126); Anion Gap 15 mmol/L; Blood Urea Nitrogen 86 mg/dL (7-17); Calcium 9.6 mg/dL (8.4-10.2); Carbon Dioxide 22 mmol/L (22-30); Chloride 93 mmol/L (98-107); Glucose 96 mg/dL (74-99); Non-African American GFR(CKD) 9 (>60 ml/min/1.73 sqM); Potassium 3.3 mmol/L (3.5-5.1); Sodium 130 mmol/L (137-145); Total Bilirubin 3.4 mg/dL (0.2-1.3); Total Protein 4.9 g/dL (6.3-8.2)
--- NOTE | 2024-07-09 11:24 | P.PN ---
Subjective Patient is seen in follow-up for acute kidney injury. Renal function stable. Blood pressure on the lower end. Underwent paracentesis July 08, 2024 with 5.5 L drained. Has been voiding. Vital signs are stable. General: No acute distress. HEENT: Head exam is unremarkable. LUNGS: No audible rhonchi or wheezes. HEART: Rate and Rhythm are regular. ABDOMEN: Mild distention. EXTREMITITES: 1+ edema. Objective - Vital Signs Vital signs: Vital Signs Temp 97.9 F 07/09/24 08:00 Pulse 92 07/09/24 08:00 Resp 18 07/09/24 08:00 BP 88/56 07/09/24 08:00 Pulse Ox 93 L 07/09/24 10:00 FiO2 Intake & Output 07/08/24 07/09/24 07/09/24 18:59 06:59 18:59 Intake Total 360 Output Total 400 300 Balance -400 -300 360 Intake: Oral 360 Output: Urine 400 300 Other: Voiding Method Indwelling Catheter Indwelling Catheter Indwelling Catheter - Labs CBC & Chem 7: 07/09/24 05:51 07/09/24 05:51 Labs: Abnormal Lab Results - Last 24 Hours (Table) 07/08/24 07/09/24 07/09/24 Range/Units 12:16 05:51 05:51 RBC 2.12 L (4.10-5.20) 10*6/uL Hgb 7.1 L (12.0-15.0) g/dL Hct 21.6 L (37.2-46.3) % MCV 101.9 H (80.0-97.0) fL MCH 33.5 H (27.0-32.0) pg Plt Count 40 L* (140-440) 10*3/uL Lymphocytes # 0.42 L (0.90-5.00) 10*3/uL Eosinophils # 0.00 L (0.04-0.35) 10*3/uL Sodium 130 L (137-145) mmol/L Potassium 3.3 L (3.5-5.1) mmol/L Chloride 93 L (98-107) mmol/L BUN 86 H (7-17) mg/dL Creatinine 4.66 H (0.52-1.04) mg/dL Total Bilirubin 3.4 H (0.2-1.3) mg/dL AST 38 H (14-36) U/L Total Protein 4.9 L (6.3-8.2) g/dL Albumin 2.9 L (3.5-5.0) g/dL Fluid Appearance Cloudy A (Clear) Microbiology - Last 24 Hours (Table) 07/08/24 12:16 Gram Stain - Preliminary Ascites Fluid Body Fluid Culture - Preliminary Assessment and Plan Plan: Assessment: 1. Acute kidney injury secondary to ATN secondary to hypotension. Creatinine 4.79 on admission and is stable at 4.66 today. Creatinine 2.52 dated May 04, 2024. No hydronephrosis noted on kidney ultrasound. 2. Hypovolemic hyponatremia from poor intake and vomiting. Urine sodium less than 20. TSH noted to be low. Improved. Now appears hypervolemic. Improved post paracentesis. 3. Liver cirrhosis. Patient gets weekly paracentesis. Last paracentesis July 08, 2024 with 5.5 L drained. 4. Metabolic acidosis secondary to acute kidney injury. On oral bicarb. 5. Hepatic encephalopathy. Mentation better. 6. Urinary retention. Has Villa catheter. Plan: Encouraged oral intake. Maintain fluid restriction. Maintain midodrine. Maintain spironolactone 25 mg twice daily. Add Lasix 40 mg orally once daily. Replace potassium. Avoid nephrotoxins. Continue to monitor renal function and urine output. Continue to assess daily for need for renal replacement therapy.
--- NOTE | 2024-07-09 12:42 | P.PN ---
Subjective Progress Note Date: 07/09/24 Hospital Course: 69 year old F with PMH of liver cirrhosis requiring weekly paracentesis and CKD presents to the ED for generalized weakness and hallucinations. History is supplemented by the as patient appears lethargic. Symptoms ongoing for the past 2 days. He reports she has started hallucinating today along with bouts of NBNB N/V. reports a poor appetite during this time. She reports lightheadedness with changes in position. 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 Patient denies any pain. She denies any headache, fever or chills, cough, chest pain, shortness of breath, palpitations, changes in bowel habits. She denies any numbness/tinging of the extremities. In the ED she underwent extensive evaluation. BP 75/58, HR 89, T 97.4F, RR 18, 90% on RA. CBC, Coag panel, CMP significant for WBC 2.98, Hg 9.8, Hct 30.2, MCV 101.2, Plt 106, PT 14, INR 1.3, Na 124, Cl 87, bicarb 21, BUN 72, Cr 4.79, glu 135, T. Bili 2.6, AST 68, alk phos 133, alb 2.9. Trop < 0.012. Mag 2.8. CXR LLL atelectasis/infiltrate. CT head no acute process. EKG sinus rhythm Admitted for further management of acute metabolic encephalopathy with hallucinations, KALANI on CKD, decompensated cirrhosis. IR consulted, nephrology consulted, GI consulted. 07/07: Per nephrology, patient was provided with 25 g of IV albumin x 2, Villa catheter was inserted. Per IR, no paracentesis planned due to hypotension. Discussed with patient's , he is not interested in hospice or palliative approach at this time, hopeful that his will be able to get liver transplant, reports that her liver specialist states that she would not tolerate the surgery, now is seeking care at another institution, considering [facility]. We did extensively discuss her current medical conditions, recurrent hospitalizations, he shared that she gets admitted every week at different hospitals and not getting desired help. He states that her home blood pressure is usually around 80s over 40s. I addressed very poor prognosis given her decompensated cirrhosis, acute kidney injury, multiple hospitalizations, generalized debility, patient's again was not interested in hospice at this time. Discussed with RN and case management, appears that patient gets discharged from the hospital's, stopped taking her medications and gets readmitted. Abdominal ultrasound showed ascites within all 4 quadrants of the abdomen. TTE with hyperdynamic LV EF 65 to 70%, aortic sclerosis with mild stenosis, no pericardial effusion. 07/08 IR for paracenthesis , IV fluids stopped, now on fluid restriction, started on spironolactone 25 mg bid by nephr, Discussed with CM, refuses placement and home care, understands that she's a 2 person assist. 07/09: Patient is more alert, peritoneal fluid analysis came back suggestive of SBP, started on ceftriaxone, cultures pending. Hospice meeting had placed today, is not quite ready, however, states that no plans for hemodialysi s for the patient. Nephrology added Lasix 40 mg p.o. daily Subjective: abdominal discomfort improved, generalized body aches persist Pertinent positives and negatives as discussed above, a complete review of systems was performed and all other systems are negative. Vitals Signs Reviewed. General: [toxic], [no distress], [appears at stated age] Derm: [warm], [dry] Head: [atraumatic], [normocephalic], [symmetric] Eyes: [EOMI], [no lid lag], [anicteric sclera] Mouth: [no lip lesion], [mucus membranes moist] Cardiovascular: [S1S2 reg], [no murmur] Lungs: [Decreased breath sounds bibasilarly], [no rhonchi, no rales] , [no accessory muscle use] Abdominal: Generalized tenderness, distended, fluid wave appreciated], Ext: [no gross muscle atrophy], bilateral lower extremity edema 1+], [no co ntractures] Neuro: [ CN II-XI grossly intact], [no focal neuro deficits] Psych: [Lethargic, answers simple questions, follows simple commands Data Reviewed Today: Pertinent Labs: Sodium 130, potassium 3.3, bicarb 22, creatinine 4.66, normal WBC, hemoglobin 7.1, platelet count 40 Assessment and Plan: Acute metabolic encephalopathy secondary to KALANI and decompensated cirrhosis, hyponatremia -Ammonia level initially elevated at 176, trended down to 21 -TSH low 0.015, T4 normal -B12 level 2897, folate 15.3 -UA without signs of UTI SBP Decompensated cirrhosis Chronic hypotension secondary to above Thrombocytopenia likely secondary to above Supratherapeutic INR likely secondary to liver cirrhosis -IR consulted for paracentesis, done 07/08, 5.5 L removed -Continue rifaximin 550 mg p.o. twice daily -Ceftriaxone 2 g IV daily SO -Continue home midodrine 10 mg 3 times daily AC -continue lactulose 30 g tid,, goal BM 3-4 a day -GI consulted -Hospice following, family not currently ready KALANI secondary to ATN in the settings of hypotension Hypovolemic hyponatremia Hypokalemia Metabolic acidosis secondary to above -Nephrology following, stopped normal saline at 100 cc/h,started on fluid restr iction, added spironolactone 25 bid, Lasix 40 mg p.o. daily added, continue home midodrine 10 mg AC 3 times daily, provided with 2 doses of albumin 25% on 07/07 -Maintain Villa catheter for strict I's and O's -Potassium replaced, monitor BMP daily Microcytic anemia -Hemoglobin stable, no folate or B12 deficiency DVT ppx: SCD Code status: Full code Anticipated discharge place: home per request Anticipated discharge time: Pending clinical stability Objective - Vital Signs Vital signs: Vital Signs Temp 97.9 F 07/09/24 08:00 Pulse 92 07/09/24 08:00 Resp 18 07/09/24 08:00 BP 88/56 07/09/24 08:00 Pulse Ox 93 L 07/09/24 10:00 FiO2 Intake & Output 07/08/24 07/09/24 07/09/24 18:59 06:59 18:59 Intake Total 360 Output Total 400 300 Balance -400 -300 360 Intake: Oral 360 Output: Urine 400 300 Other: Voiding Method Indwelling Catheter Indwelling Catheter Indwelling Catheter - Labs CBC & Chem 7: 07/09/24 05:51 07/09/24 05:51 Labs: Abnormal Lab Results - Last 24 Hours (Table) 07/08/24 07/09/24 07/09/24 Range/Units 12:16 05:51 05:51 RBC 2.12 L (4.10-5.20) 10*6/uL Hgb 7.1 L (12.0-15.0) g/dL Hct 21.6 L (37.2-46.3) % MCV 101.9 H (80.0-97.0) fL MCH 33.5 H (27.0-32.0) pg Plt Count 40 L* (140-440) 10*3/uL Lymphocytes # 0.42 L (0.90-5.00) 10*3/uL Eosinophils # 0.00 L (0.04-0.35) 10*3/uL Sodium 130 L (137-145) mmol/L Potassium 3.3 L (3.5-5.1) mmol/L Chloride 93 L (98-107) mmol/L BUN 86 H (7-17) mg/dL Creatinine 4.66 H (0.52-1.04) mg/dL Total Bilirubin 3.4 H (0.2-1.3) mg/dL AST 38 H (14-36) U/L Total Protein 4.9 L (6.3-8.2) g/dL Albumin 2.9 L (3.5-5.0) g/dL Fluid Appearance Cloudy A (Clear) Microbiology - Last 24 Hours (Table) 07/08/24 12:16 Gram Stain - Preliminary Ascites Fluid Body Fluid Culture - Preliminary
[2024-07-09 13:22] LABS: Basophils # (A) 0.02 10*3/uL (0.00-0.10); Basophils % (A) 0.2 %; HCT 21.5 % (37.2-46.3); HGB 7.2 g/dL (12.0-15.0); Immature Platelet Fraction 2.7 % (1.1-6.1); Lymphocytes % (A) 4.1 %; MCH 33.8 pg (27.0-32.0); MCHC 33.5 g/dL (32.0-37.0); MCV 100.9 fL (80.0-97.0); Mean Platelet Volume 10.7 fL (9.5-12.2); Monocytes % (A) 8.2 %; Neutrophils # (A) 8.49 10*3/uL (1.80-7.70); Neutrophils % (A) 87.2 %; RBC 2.13 10*6/uL (4.10-5.20); RDW 24.9 % (11.5-14.5); WBC 9.74 10*3/uL (4.50-10.00)
[2024-07-09] MEDS: POTASSIUM BICARBONATE/CIT AC 20 MEQ TABLET.EFF PO ONE ×2 (13:29)
[2024-07-09] MEDS: DARBEPOETIN ALFA 40 MCG/0.4 ML SYRINGE SQ SCH (13:29)
[2024-07-09] MEDS: FUROSEMIDE 40 MG TAB PO SCH (13:30)
--- NOTE | 2024-07-09 14:01 | P.PN ---
Subjective Progress Note Date: 07/09/24 Principal diagnosis: Transaminitis This is a pleasant 69-year-old female who was brought in by EMS for concerns of altered mental status changes. Patient currently alert and oriented to self and place however is a poor historian and confused with some of her history. Patient's at bedside reports patient has history of liver disease diagnosed 5 to 10 years ago and follows with Dr. Pandey [facility] who is a loop cutter and transplant voltage tester. Underlying liver disease secondary to liver cirrhosis. Patient has past medical history includi ng diabetes mellitus, chronic renal failure, decompensated liver cirrhosis with ascites requiring weekly paracentesis, obesity, and coronary artery disease status post cardiac stents. Patient was noted to be confused on admission, mildly elevated bilirubin and AST which is consistent with underlying liver disease elevated ammonia at 176 on admission. Gastroenterology consulted for hyperbilirubinemia. Patient was started on lactulose 30 g 3 times daily. Patient's home meds include lactulose 10 mg twice daily as needed, patient states she was taking it. Also on Xifaxan 550 mg twice daily. Brain CT with no acute intracranial process. July 08, 2024 Patient seen and examined today as a follow-up. No acute changes through the night. Some improved mentation. No abdominal pain nausea or vomiting. Undergoing paracentesis today. Slight improvement in sodium, total bilirubin 3.6 AST 65 ALT 19 alkaline phosphatase 57 July 09, 2024 Patient seen and examined today as a follow-up. She is sitting up at the bedside. Her and son are at the bedside. They are requesting a informa tional meeting with the hospice team. Patient's mentation improved today. She is alert and oriented x 3. She underwent paracentesis yesterday with 5.5 L removed. WBC 7.8 hemoglobin 7.1 platelet count 40,000 sodium 130 potassium 3.3 BUN 86 creatinine 4.6 total bilirubin 3.4 AST 38 ALT 15 alkaline phosphatase 55. Cytology and fluid cultures were ordered by primary medical team. Currently pending. Nephrology following and stating that patient likely will require renal replacement therapy however would not tolerate as patient has been hypotensive and is requiring midodrine. Objective - Vital Signs Vital signs: Vital Signs Temp 97.8 F 07/09/24 03:24 Pulse 84 07/09/24 03:24 Resp 17 07/09/24 03:24 BP 90/52 04/09/25 03:24 Pulse Ox 93 L 07/09/24 10:00 FiO2 Intake & Output 07/08/24 07/09/24 07/09/24 18:59 06:59 18:59 Output Total 400 300 Balance -400 -300 Output: Urine 400 300 Other: Voiding Method Indwelling Catheter Indwelling Catheter - Exam General appearance: The patient is alert, oriented, appears in no acute distre ss. HET: Head is normocephalic and atraumatic. Conjunctiva pink. Sclera anicteric. Neck: Supple without lymphadenopathy. Abdomen: Soft, nontender, nondistended. Extremities: Normal skin color and turgor. No pedal edema Skin: No rashes, no jaundice Neurological: No focal deficits. Alert and oriented. - Labs CBC & Chem 7: 07/09/24 05:51 07/09/24 05:51 Labs: Abnormal Lab Results - Last 24 Hours (Table) 07/08/24 07/09/24 07/09/24 Range/Units 12:16 05:51 05:51 RBC 2.12 L (4.10-5.20) 10*6/uL Hgb 7.1 L (12.0-15.0) g/dL Hct 21.6 L (37.2-46.3) % MCV 101.9 H (80.0-97.0) fL MCH 33.5 H (27.0-32.0) pg Plt Count 40 L* (140-440) 10*3/uL Lymphocytes # 0.42 L (0.90-5.00) 10*3/uL Eosinophils # 0.00 L (0.04-0.35) 10*3/uL Sodium 130 L (137-145) mmol/L Potassium 3.3 L (3.5-5.1) mmol/L Chloride 93 L (98-107) mmol/L BUN 86 H (7-17) mg/dL Creatinine 4.66 H (0.52-1.04) mg/dL Total Bilirubin 3.4 H (0.2-1.3) mg/dL AST 38 H (14-36) U/L Total Protein 4.9 L (6.3-8.2) g/dL Albumin 2.9 L (3.5-5.0) g/dL Fluid Appearance Cloudy A (Clear) Microbiology - Last 24 Hours (Table) 07/08/24 12:16 Gram Stain - Preliminary Ascites Fluid Body Fluid Culture - Preliminary Assessment and Plan (1) Liver cirrhosis Narrative/Plan: 69-year-old female with altered mental status changes likely secondary from hepatic encephalopathy in the setting of underlying liver cirrhosis sounds like secondary to 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 Patient was noted to have elevated ammonia consistent with hepatic and altered mental status changes consistent with hepatic encephalopathy. She undergoes weekly paracentesis last 1 06/30/2024 and patient is scheduled for tomorrow. Will continue to follow. Agree with continued lactulose 30 g 3 times daily titrate to have 3-4 bowel movements and continue with Xifaxan 550 mg twice daily. Current Visit: Yes Status: Acute Code(s): K74.60 - UNSPECIFIED CIRRHOSIS OF LIVER SNOMED Code(s): 94346829 (2) Hepatic encephalopathy Narrative/Plan: Continue lactulose and Xifaxan Current Visit: Yes Status: Acute Code(s): K76.82 - HEPATIC ENCEPHALOPATHY SNOMED Code(s): 48252461 (3) Ascites Current Visit: Yes Status: Acute Code(s): R18.8 - OTHER ASCITES SNOMED Code(s): 908063472 (4) Chronic renal failure Narrative/Plan: Acute kidney injury secondary to ATN secondary to hypotension on chronic renal failure. Nephrology following closely patient likely will need renal replacement therapy Current Visit: Yes Status: Acute Code(s): N18.9 - CHRONIC KIDNEY DISEASE, UNSPECIFIED SNOMED Code(s): 90926712 (5) Thrombocytopenia Narrative/Plan: Secondary to underlying liver disease and bone marrow suppression Current Visit: Yes Status: Acute Code(s): D69.6 - THROMBOCYTOPENIA, UN SPECIFIED SNOMED Code(s): 623914665 (6) Anemia Narrative/Plan: Secondary to underlying liver disease Current Visit: Yes Status: Acute Code(s): D64.9 - ANEMIA, UNSPECIFIED SNOMED Code(s): 650418526 (7) Hyponatremia Narrative/Plan: Nephrology following Current Visit: Yes Status: Acute Code(s): E87.1 - HYPO-OSMOLALITY AND HYPONATREMIA SNOMED Code(s): 40625548 Plan: 1. Continue symptomatic and supportive care 2. Patient is status post paracentesis. Paracentesis as needed 3. Patient may have renal diet 4. Continue lactulose 30 g 3 times daily, titrate to have 3-4 bowel movements a day. Discussed with patient and family importance of medication compliance 5. Continue with Xifaxan 550 mg twice daily 6. Continue with recommendations from nephrology. Diuretics deferred to nephrology. 7. Hospice consulted for informational meeting per request from family 8. No further workup from gastroenterology. Recommend follow-up with Dr. Nichols and discharge 9. Rest of medical management per primary medical team Thank you for this consultation, we will sign off at this time. Dr. Daysi So I agree with the dictator's note, documented as a scribe by Becca Astorga.
[2024-07-09 16:30] LABS: Platelet Count 47 10*3/uL (140-440)
[2024-07-09 16:31] LABS: Polychromasia Present
[2024-07-09] MEDS: HYDROmorphone 2 MG TAB PO PRN (20:57)
[2024-07-10 08:01] LABS: ALT 18 U/L (4-34); AST 60 U/L (14-36); African American GFR (CKD) 10 (>60 ml/min/1.73 sqM); Albumin 2.9 g/dL (3.5-5.0); Alkaline Phosphatase 75 U/L (38-126); Anion Gap 13 mmol/L; Blood Urea Nitrogen 86 mg/dL (7-17); Calcium 9.3 mg/dL (8.4-10.2); Carbon Dioxide 24 mmol/L (22-30); Chloride 90 mmol/L (98-107); Glucose 111 mg/dL (74-99); Magnesium 2.7 mg/dL (1.6-2.3); Non-African American GFR(CKD) 9 (>60 ml/min/1.73 sqM); Potassium 3.6 mmol/L (3.5-5.1); Sodium 127 mmol/L (137-145); Total Bilirubin 3.3 mg/dL (0.2-1.3); Total Protein 5.1 g/dL (6.3-8.2)
[2024-07-10 08:03] LABS: Basophils # (A) 0.02 10*3/uL (0.00-0.10); Basophils % (A) 0.2 %; Eosinophils # (A) 0.03 10*3/uL (0.04-0.35); Eosinophils % (A) 0.3 %; HCT 24.2 % (37.2-46.3); HGB 8.1 g/dL (12.0-15.0); Lymphocytes # (A) 0.65 10*3/uL (0.90-5.00); Lymphocytes % (A) 6.1 %; MCHC 33.5 g/dL (32.0-37.0); MCV 101.7 fL (80.0-97.0); Mean Platelet Volume 10.3 fL (9.5-12.2); Monocytes % (A) 10.4 %; Neutrophils # (A) 8.69 10*3/uL (1.80-7.70); Neutrophils % (A) 82.1 %; RBC 2.38 10*6/uL (4.10-5.20); WBC 10.58 10*3/uL (4.50-10.00)
[2024-07-10 08:04] LABS: RDW 25.1 % (11.5-14.5)
[2024-07-10 08:05] LABS: Platelet Count 69 10*3/uL (140-440)
[2024-07-10] MEDS: cefTRIAXone 2 GM in DEXTROSE 5% IN WATER 50 ML IVPB SCH (08:43)
[2024-07-10] MEDS: POTASSIUM CHLORIDE ER 20 MEQ TAB.ER PO STA (08:54)
--- NOTE | 2024-07-10 10:42 | P.PN ---
Subjective Patient is seen in follow-up for acute kidney injury. Renal function stable. Blood pressure on the lower end. Underwent paracentesis July 08, 2024 with 5.5 L drained. Vital signs are stable. General: No acute distress. HEENT: Head exam is unremarkable. LUNGS: No audible rhonchi or wheezes. HEART: Rate and Rhythm are regular. ABDOMEN: Mild distention. EXTREMITITES: 1+ edema. Objective - Vital Signs Vital signs: Vital Signs Temp 97.5 F L 07/10/24 08:22 Pulse 92 07/10/24 08:22 Resp 14 07/10/24 08:22 BP 80/43 07/10/24 08:33 Pulse Ox 93 L 07/10/24 08:22 FiO2 Intake & Output 07/09/24 07/10/24 07/10/24 18:59 06:59 18:59 Intake Total 850 260 10 Output Total 300 500 Balance 550 -240 10 Weight 86.5 kg Intake: IV 10 20 10 Invasive Line 2 10 20 10 Oral 840 240 Output: Urine 300 500 Other: Voiding Method Indwelling Catheter Indwelling Catheter Indwelling Catheter # Bowel Movements 1 - Labs CBC & Chem 7: 07/10/24 07:07 07/10/24 07:07 Labs: Abnormal Lab Results - Last 24 Hours (Table) 07/09/24 07/10/24 07/10/24 Range/Units 13:02 07:07 07:07 WBC 10.58 H (4.50-10.00) 10*3/uL RBC 2.13 L 2.38 L (4.10-5.20) 10*6/uL Hgb 7.2 L 8.1 L (12.0-15.0) g/dL Hct 21.5 L 24.2 L (37.2-46.3) % MCV 100.9 H 101.7 H (80.0-97.0) fL MCH 33.8 H 34.0 H (27.0-32.0) pg RDW 25.1 H (11.5-14.5) % Plt Count 47 L* 69 L (140-440) 10*3/uL Immature Gran # 0.09 H (0.00-0.04) 10*3/uL Neutrophils # 8.49 H 8.69 H (1.80-7.70) 10*3/uL Lymphocytes # 0.40 L 0.65 L (0.90-5.00) 10*3/uL Monocytes # 1.10 H (0.20-1.00) 10*3/uL Eosinophils # 0.00 L 0.03 L (0.04-0.35) 10*3/uL Sodium 127 L (137-145) mmol/L Chloride 90 L (98-107) mmol/L BUN 86 H (7-17) mg/dL Creatinine 4.67 H (0.52-1.04) mg/dL Glucose 111 H (74-99) mg/dL Magnesium 2.7 H (1.6-2.3) mg/dL Total Bilirubin 3.3 H (0.2-1.3) mg/dL AST 60 H (14-36) U/L Ammonia (<30) umol/L Total Protein 5.1 L (6.3-8.2) g/dL Albumin 2.9 L (3.5-5.0) g/dL 07/10/24 Range/Units 07:07 WBC (4.50-10.00) 10*3/uL RBC (4.10-5.20) 10*6/uL Hgb (12.0-15.0) g/dL Hct (37.2-46.3) % MCV (80.0-97.0) fL MCH (27.0-32.0) pg RDW (11.5-14.5) % Plt Count (140-440) 10*3/uL Immature Gran # (0.00-0.04) 10*3/uL Neutrophils # (1.80-7.70) 10*3/uL Lymphocytes # (0.90-5.00) 10*3/uL Monocytes # (0.20-1.00) 10*3/uL Eosinophils # (0.04-0.35) 10*3/uL Sodium (137-145) mmol/L Chloride (98-107) mmol/L BUN (7-17) mg/dL Creatinine (0.52-1.04) mg/dL Glucose (74-99) mg/dL Magnesium (1.6-2.3) mg/dL Total Bilirubin (0.2-1.3) mg/dL AST (14-36) U/L Ammonia 51 H (<30) umol/L Total Protein (6.3-8.2) g/dL Albumin (3.5-5.0) g/dL Microbiology - Last 24 Hours (Table) 07/08/24 12:16 Gram Stain - Preliminary Ascites Fluid Body Fluid Culture - Preliminary Assessment and Plan Plan: Assessment: 1. Acute kidney injury secondary to ATN secondary to hypotension. Creatinine 4.79 on admission and is stable at 4.67 today. Creatinine 2.52 dated May 04, 2024. No hydronephrosis noted on kidney ultrasound. 2. Hypovolemic hyponatremia from poor intake and vomiting. Urine sodium less than 20. TSH noted to be low. Improved. Now appears hypervolemic. Improved post paracentesis. 3. Liver cirrhosis. Patient gets weekly paracentesis. Last paracentesis July 08, 2024 with 5.5 L drained. 4. Metabolic acidosis secondary to acute kidney injury. On oral bicarb. Better. 5. Hepatic encephalopathy. Mentation better. 6. Urinary retention. Has Villa catheter. Plan: Encouraged oral intake. Maintain fluid restriction. Maintain midodrine. Maintain spironolactone 25 mg twice daily. Maintain Lasix. Replace potassium. Avoid nephrotoxins. Continue to monitor renal function and urine output. Patient and family wish for no formal renal replacement therapy.
--- NOTE | 2024-07-10 10:45 | P.PN ---
Subjective Progress Note Date: 07/10/24 Hospital Course: 69 year old F with PMH of liver cirrhosis requiring weekly paracentesis and CKD presents to the ED for generalized weakness and hallucinations. History is supplemented by the as patient appears lethargic. Symptoms ongoing for the past 2 days. He reports she has started hallucinating today along with bouts of NBNB N/V. reports a poor appetite during this time. She reports lightheadedness with changes in position. Follows bag tester and gastroenterology out of [facility]. Patient denies any pain. She denies any headache, fever or chills, cough, chest pain, shortness of breath, palpitations, changes in bowel habits. She denies any numbness/tinging of the extremities. In the ED she underwent extensive evaluation. BP 75/58, HR 89, T 97.4F, RR 18, 90% on RA. CBC, Coag panel, CMP significant for WBC 2.98, Hg 9.8, Hct 30.2, MCV 101.2, Plt 106, PT 14, INR 1.3, Na 124, Cl 87, bicarb 21, BUN 72, Cr 4.79, glu 135, T. Bili 2.6, AST 68, alk phos 133, alb 2.9. Trop < 0.012. Mag 2.8. CXR LLL atelectasis/infiltrate. CT head no acute process. EKG sinus rhythm Admitted for further management of acute metabolic encephalopathy with hallucinations, KALANI on CKD, decompensated cirrhosis. IR consulted, nephrology consulted, GI consulted. 07/07: Per nephrology, patient was provided with 25 g of IV albumin x 2, Villa catheter was inserted. Per IR, no paracentesis planned due to hypotension. Discussed with patient's , he is not interested in hospice or palliative approach at this time, hopeful that his will be able to get liver transplant, reports that her liver specialist states that she would not tolerate the surgery, now is seeking care at another institution, considering [facility]. We did extensively discuss her current medical conditions, recurrent hospitalizations, he shared that she gets admitted every week at different hospitals and not getting desired help. He states that her home blood pressure is usually around 80s over 40s. I addressed very poor prognosis given her decompensated cirrhosis, acute kidney injury, multiple hospitalizations, generalized debility, patient's again was not interested in hospice at this time. Discussed with RN and case management, appears that patient gets discharged from the hospital's, stopped taking her medications and gets readmitted. Abdominal ultrasound showed ascites within all 4 quadrants of the abdomen. TTE with hyperdynamic LV EF 65 to 70%, aortic sclerosis with mild stenosis, no pericardial effusion. 07/08 IR for paracenthesis , IV fluids stopped, now on fluid restriction, started on spironolactone 25 mg bid by nephr, Discussed with CM, refuses placement and home care, understands that she's a 2 person assist. 07/09: Patient is more alert, peritoneal fluid analysis came back suggestive of SBP, started on ceftriaxone, cultures pending. Hospice meeting had placed today, is not quite ready, however, states that no plans for hemodialysi s for the patient. Nephrology added Lasix 40 mg p.o. daily 07/10: Alert but somnolent, no improvement in kidney function, continues to be hypotensive in the 80s over 40s, preliminary peritoneal fluid cultures and Gram stain negative, continued on ceftriaxone Subjective: Complains of feeling very fatigued Pertinent positives and negatives as discussed above, a complete review of systems was performed and all other systems are negative. Vitals Signs Reviewed. General: [toxic], [no distress], [appears at stated age] Derm: [warm], [dry] Head: [atraumatic], [normocephalic], [symmetric] Eyes: [EOMI], [no lid lag], [anicteric sclera] Mouth: [no lip lesion], [mucus membranes moist] Cardiovascular: [S1S2 reg], [no murmur] Lungs: [Decreased breath sounds bibasilarly], [no rhonchi, no rales] , [no accessory muscle use] Abdominal: Generalized tenderness, distended, fluid wave appreciated], Ext: [no gross muscle atrophy], bilateral lower extremity edema 1+], [no contractures] Neuro: [ CN II-XI grossly intact], [no focal neuro deficits] Psych: Alert but somnolent Data Reviewed Today: Pertinent Labs: WBC 10.5, hemoglobin 8.1, platelet count 69, sodium 127, potassium 3.6, creatinine 4.67, BUN 86, Assessment and Plan: Acute metabolic encephalopathy secondary to KALANI and decompensated cirrhosis, hyponatremia -Ammonia level initially elevated at 176, trended down to 21 -TSH low 0.015, T4 normal -B12 level 2897, folate 15.3 -UA without signs of UTI SBP Decompensated cirrhosis Chronic hypotension secondary to above Thrombocytopenia likely secondary to above Supratherapeutic INR likely secondary to liver cirrhosis -IR consulted for paracentesis, done 07/08, 5.5 L removed -Continue rifaximin 550 mg p.o. twice daily -Ceftriaxone 2 g IV daily -Follow-up on peritoneal fluid Gram stain and cultures, currently negative -Continue home midodrine 10 mg 3 times daily AC -continue lactulose 30 g tid,, goal BM 3-4 a day -GI consulted, no new recommendations -Hospice following, family not currently ready KALANI secondary to ATN in the settings of hypotension Hypovolemic hyponatremia Hypokalemia Metabolic acidosis secondary to above -Nephrology following, stopped normal saline at 100 cc/h,started on fluid restriction, added spironolactone 25 bid, Lasix 40 mg p.o. daily added, continue home midodrine 10 mg AC 3 times daily, provided with 2 doses of albumin 25% on 07/07 -Maintain Villa catheter for strict I's and O's -Potassium replaced, monitor BMP daily Microcytic anemia -Hemoglobin stable, no folate or B12 deficiency DVT ppx: SCD Code status: Full code Anticipated discharge place: home per request Anticipated discharge time: Pending clinical stability Objective - Vital Signs Vital signs: Vital Signs Temp 97.5 F L 07/10/24 08:22 Pulse 92 07/10/24 08:22 Resp 14 07/10/24 08:22 BP 80/43 07/10/24 08:33 Pulse Ox 93 L 07/10/24 08:22 FiO2 Intake & Output 07/09/24 07/10/24 07/10/24 18:59 06:59 18:59 Intake Total 850 260 10 Output Total 300 500 Balance 550 -240 10 Weight 86.5 kg Intake: IV 10 20 10 Invasive Line 2 10 20 10 Oral 840 240 Output: Urine 300 500 Other: Voiding Method Indwelling Catheter Indwelling Catheter Indwelling Catheter # Bowel Movements 1 - Labs CBC & Chem 7: 07/10/24 07:07 07/10/24 07:07 Labs: Abnormal Lab Results - Last 24 Hours (Table) 07/09/24 07/10/24 07/10/24 Range/Units 13:02 07:07 07:07 WBC 10.58 H (4.50-10.00) 10*3/uL RBC 2.13 L 2.38 L (4.10-5.20) 10*6/uL Hgb 7.2 L 8.1 L (12.0-15.0) g/dL Hct 21.5 L 24.2 L (37.2-46.3) % MCV 100.9 H 101.7 H (80.0-97.0) fL MCH 33.8 H 34.0 H (27.0-32.0) pg RDW 25.1 H (11.5-14.5) % Plt Count 47 L* 69 L (140-440) 10*3/uL Immature Gran # 0.09 H (0.00-0.04) 10*3/uL Neutrophils # 8.49 H 8.69 H (1.80-7.70) 10*3/uL Lymphocytes # 0.40 L 0.65 L (0.90-5.00) 10*3/uL Monocytes # 1.10 H (0.20-1.00) 10*3/uL Eosinophils # 0.00 L 0.03 L (0.04-0.35) 10*3/uL Sodium 127 L (137-145) mmol/L Chloride 90 L (98-107) mmol/L BUN 86 H (7-17) mg/dL Creatinine 4.67 H (0.52-1.04) mg/dL Glucose 111 H (74-99) mg/dL Magnesium 2.7 H (1.6-2.3) mg/dL Total Bilirubin 3.3 H (0.2-1.3) mg/dL AST 60 H (14-36) U/L Ammonia (<30) umol/L Total Protein 5.1 L (6.3-8.2) g/dL Albumin 2.9 L (3.5-5.0) g/dL 07/10/24 Range/Units 07:07 WBC (4.50-10.00) 10*3/uL RBC (4.10-5.20) 10*6/uL Hgb (12.0-15.0) g/dL Hct (37.2-46.3) % MCV (80.0-97.0) fL MCH (27.0-32.0) pg RDW (11.5-14.5) % Plt Count (140-440) 10*3/uL Immature Gran # (0.00-0.04) 10*3/uL Neutrophils # (1.80-7.70) 10*3/uL Lymphocytes # (0.90-5.00) 10*3/uL Monocytes # (0.20-1.00) 10*3/uL Eosinophils # (0.04-0.35) 10*3/uL Sodium (137-145) mmol/L Chloride (98-107) mmol/L BUN (7-17) mg/dL Creatinine (0.52-1.04) mg/dL Glucose (74-99) mg/dL Magnesium (1.6-2.3) mg/dL Total Bilirubin (0.2-1.3) mg/dL AST (14-36) U/L Ammonia 51 H (<30) umol/L Total Protein (6.3-8.2) g/dL Albumin (3.5-5.0) g/dL Microbiology - Last 24 Hours (Table) 07/08/24 12:16 Gram Stain - Preliminary Ascites Fluid Body Fluid Culture - Preliminary
[2024-07-10] MEDS: LACTULOSE 20 GM/30 ML CUP PO ONE ×3 (12:23→18:13)
--- NOTE | 2024-07-10 17:05 | P.PN ---
Subjective Progress Note Date: 07/10/24 Principal diagnosis: Transaminitis This is a pleasant 69-year-old female who was brought in by EMS for concerns of altered mental status changes. Patient currently alert and oriented to self and place however is a poor historian and confused with some of her history. Patient's at bedside reports patient has history of liver disease diagnosed 5 to 10 years ago and follows with Dr. Pandey [facility] who is a glass tinter and transplant sales promotion officer. Underlying liver disease secondary to liver cirrhosis. Patient has past medical history includi ng diabetes mellitus, chronic renal failure, decompensated liver cirrhosis with ascites requiring weekly paracentesis, obesity, and coronary artery disease status post cardiac stents. Patient was noted to be confused on admission, mildly elevated bilirubin and AST which is consistent with underlying liver disease elevated ammonia at 176 on admission. Gastroenterology consulted for hyperbilirubinemia. Patient was started on lactulose 30 g 3 times daily. Patient's home meds include lactulose 10 mg twice daily as needed, patient states she was taking it. Also on Xifaxan 550 mg twice daily. Brain CT with no acute intracranial process. July 08, 2024 Patient seen and examined today as a follow-up. No acute changes through the night. Some improved mentation. No abdominal pain nausea or vomiting. Undergoing paracentesis today. Slight improvement in sodium, total bilirubin 3.6 AST 65 ALT 19 alkaline phosphatase 57 July 09, 2024 Patient seen and examined today as a follow-up. She is sitting up at the bedside. Her and son are at the bedside. They are requesting a informa tional meeting with the hospice team. Patient's mentation improved today. She is alert and oriented x 3. She underwent paracentesis yesterday with 5.5 L removed. WBC 7.8 hemoglobin 7.1 platelet count 40,000 sodium 130 potassium 3.3 BUN 86 creatinine 4.6 total bilirubin 3.4 AST 38 ALT 15 alkaline phosphatase 55. Cytology and fluid cultures were ordered by primary medical team. Currently pending. Nephrology following and stating that patient likely will require renal replacement therapy however would not tolerate as patient has been hypotensive and is requiring midodrine. July 10, 2024 Patient seen and examined today as a follow-up. Physical therapy and Occupational Therapy at the bedside. Patient is very weak and only able to stand at the side of the bed with two-person assist. is at the bedside states that she has been sleeping most of the morning. She is awake and alert at this time but seems not quite as alert as yesterday. Patient's states she has not been eating much. Paracentesis cytology negative for malignant cells. Today's labs WBC 10.5 hemoglobin 8.1 platelet count 69,000 sodium 127 potassium 3.6 BUN 86 creatinine 4.67 bilirubin 3.3 AST 60 ALT 18 alkaline phosphatase 75 ammonia level 51. Patient reportedly only had 1 bowel movement yesterday and none this morning. Objective - Vital Signs Vital signs: Vital Signs Temp 97.4 F L 07/10/24 16:30 Pulse 93 07/10/24 16:30 Resp 14 07/10/24 16:30 BP 84/46 07/10/24 16:30 Pulse Ox 91 L 07/10/24 16:30 FiO2 Intake & Output 07/09/24 07/10/24 07/10/24 18:59 06:59 18:59 Intake Total 850 260 130 Output Total 300 500 100 Balance 550 -240 30 Weight 86.5 kg Intake: IV 10 20 10 Invasive Line 2 10 20 10 Oral 840 240 120 Output: Urine 300 500 100 Other: Voiding Method Indwelling Catheter Indwelling Catheter Indwelling Catheter # Bowel Movements 1 0 - Exam General appearance: The patient is alert, oriented, tired and weak appearing, appears in no acute distress. HET: Head is normocephalic and atraumatic. Conjunctiva pink. Sclera anicteric. Neck: Supple without lymphadenopathy. Abdomen: Soft, nontender, nondistended. Extremities: Normal skin color and turgor. No pedal edema Skin: No rashes, jaundice. Neurological: No focal deficits. Alert and oriented. - Labs CBC & Chem 7: 07/10/24 07:07 07/10/24 07:07 Labs: Abnormal Lab Results - Last 24 Hours (Table) 07/10/24 07/10/24 07/10/24 Range/Units 07:07 07:07 07:07 WBC 10.58 H (4.50-10.00) 10*3/uL RBC 2.38 L (4.10-5.20) 10*6/uL Hgb 8.1 L (12.0-15.0) g/dL Hct 24.2 L (37.2-46.3) % MCV 101.7 H (80.0-97.0) fL MCH 34.0 H (27.0-32.0) pg RDW 25.1 H (11.5-14.5) % Plt Count 69 L (140-440) 10*3/uL Immature Gran # 0.09 H (0.00-0.04) 10*3/uL Neutrophils # 8.69 H (1.80-7.70) 10*3/uL Lymphocytes # 0.65 L (0.90-5.00) 10*3/uL Monocytes # 1.10 H (0.20-1.00) 10*3/uL Eosinophils # 0.03 L (0.04-0.35) 10*3/uL Sodium 127 L (137-145) mmol/L Chloride 90 L (98-107) mmol/L BUN 86 H (7-17) mg/dL Creatinine 4.67 H (0.52-1.04) mg/dL Glucose 111 H (74-99) mg/dL Magnesium 2.7 H (1.6-2.3) mg/dL Total Bilirubin 3.3 H (0.2-1.3) mg/dL AST 60 H (14-36) U/L Ammonia 51 H (<30) umol/L Total Protein 5.1 L (6.3-8.2) g/dL Albumin 2.9 L (3.5-5.0) g/dL Microbiology - Last 24 Hours (Table) 07/08/24 12:16 Anaerobic Culture - Preliminary Ascites Fluid 07/08/24 12:16 Gram Stain - Preliminary Ascites Fluid Body Fluid Culture - Preliminary Assessment and Plan (1) Liver cirrhosis Narrative/Plan: 69-year-old female with altered mental status changes likely secondary from hepatic encephalopathy in the setting of underlying liver cirrhosis sounds like secondary to nonalcoholic steatosis diagnosed 5 to 10 years ago follows with GI and transplant sales promotion officer regularly. Patient was noted to have elevated ammonia consistent with hepatic and altered mental status changes consistent with hepatic encephalopathy. She undergoes weekly paracentesis last 1 06/30/2024 and patient is scheduled for tomorrow. Will continue to follow. Agree with continued lactulose 30 g 3 times daily titrate to have 3-4 bowel movements and continue with Xifaxan 550 mg twice daily. Current Visit: Yes Status: Acute Code(s): K74.60 - UNSPECIFIED CIRRHOSIS OF LIVER SNOMED Code(s): 70240215 (2) Hepatic encephalopathy Narrative/Plan: Continue lactulose and Xifaxan Current Visit: Yes Status: Acute Code(s): K76.82 - HEPATIC ENCEPHALOPATHY SNOMED Code(s): 85493175 (3) Ascites Current Visit: Yes Status: Acute Code(s): R18.8 - OTHER ASCITES SNOMED Code(s): 105923818 (4) Chronic renal failure Narrative/Plan: Acute kidney injury secondary to ATN secondary to hypotension on chronic renal failure. Nephrology following closely patient likely will need renal replacement therapy Current Visit: Yes Status: Acute Code(s): N18.9 - CHRONIC KIDNEY DISEASE, UNSPECIFIED SNOMED Code(s): 08244692 (5) Thrombocytopenia Narrative/Plan: Secondary to underlying liver disease and bone marrow suppression Current Visit: Yes Status: Acute Code(s): D69.6 - THROMBOCYTOPENIA, UNSPECIFIED SNOMED Code(s): 319551612 (6) Anemia Narrative/Plan: Secondary to underlying liver disease Current Visit: Yes Status: Acute Code(s): D64.9 - ANEMIA, UNSPECIFIED SNOMED Code(s): 013348682 (7) Hyponatremia Narrative/Plan: Nephrology following Current Visit: Yes Status: Acute Code(s): E87.1 - HYPO-OSMOLALITY AND HYPONATREMIA SNOMED Code(s): 95583664 Plan: 1. Continue symptomatic and supportive care 2. Patient is status post paracentesis. Paracentesis as needed 3. Patient may have renal diet 4. Lactulose additional dose ordered as patient's ammonia level has increased a nd patient has not had a bowel movement yet today and only 1 yesterday 5. Continue lactulose 30 g 3 times daily, titrate to have 3-4 bowel movements a day. Discussed with patient and family importance of medication compliance 6. Continue with Xifaxan 550 mg twice daily 7. Continue with recommendations from nephrology. Diuretics deferred to nephrology. 8. Hospice consulted for informational meeting per request from family and they are not interested at this time 9. No further workup from gastroenterology. Recommend follow-up with Dr. Nichols and discharge 10. Rest of medical management per primary medical team 11. Ensure added Thank you for this consultation, we will continue to follow Dr. Daysi So I agree with the dictator's note, documented as a scribe by Becca RUEDA.
[2024-07-10 18:55] LABS: Platelet Count 40 10*3/uL (140-440)
[2024-07-11 07:39] LABS: Basophils # (A) 0.01 10*3/uL (0.00-0.10); Basophils % (A) 0.1 %; HCT 23.6 % (37.2-46.3); HGB 7.7 g/dL (12.0-15.0); Lymphocytes # (A) 0.55 10*3/uL (0.90-5.00); Lymphocytes % (A) 4.2 %; MCH 33.3 pg (27.0-32.0); MCHC 32.6 g/dL (32.0-37.0); MCV 102.2 fL (80.0-97.0); Mean Platelet Volume 10.7 fL (9.5-12.2); Monocytes # (A) 1.15 10*3/uL (0.20-1.00); Monocytes % (A) 8.9 %; Neutrophils % (A) 86.3 %; RBC 2.31 10*6/uL (4.10-5.20); WBC 12.97 10*3/uL (4.50-10.00)
[2024-07-11 07:41] LABS: RDW 25.1 % (11.5-14.5)
[2024-07-11 07:42] LABS: Platelet Count 67 10*3/uL (140-440)
[2024-07-11 07:48] LABS: ALT 23 U/L (4-34); AST 87 U/L (14-36); African American GFR (CKD) 9 (>60 ml/min/1.73 sqM); Albumin 2.9 g/dL (3.5-5.0); Alkaline Phosphatase 87 U/L (38-126); Anion Gap 15 mmol/L; Blood Urea Nitrogen 85 mg/dL (7-17); Calcium 9.3 mg/dL (8.4-10.2); Carbon Dioxide 24 mmol/L (22-30); Chloride 90 mmol/L (98-107); Glucose 128 mg/dL (74-99); Non-African American GFR(CKD) 7 (>60 ml/min/1.73 sqM); Potassium 3.8 mmol/L (3.5-5.1); Sodium 129 mmol/L (137-145); Total Bilirubin 2.6 mg/dL (0.2-1.3); Total Protein 5.1 g/dL (6.3-8.2)
--- NOTE | 2024-07-11 09:48 | P.PN ---
Subjective Patient is seen in follow-up for acute kidney injury. Renal function worse. Urine output about 300 cc in last 24 hours. Blood pressure on the lower end. Underwent paracentesis July 08, 2024 with 5.5 L drained. Vital signs are stable. General: No acute distress. HEENT: Head exam is unremarkable. LUNGS: No audible rhonchi or wheezes. HEART: Rate and Rhythm are regular. ABDOMEN: Mild distention. EXTREMITITES: 1+ edema. Objective - Vital Signs Vital signs: Vital Signs Temp 97.3 F L 07/11/24 07:31 Pulse 97 07/11/24 07:31 Resp 14 07/11/24 07:31 BP 98/60 07/11/24 08:46 Pulse Ox 95 07/11/24 07:31 FiO2 Intake & Output 07/10/24 07/11/24 07/11/24 18:59 06:59 18:59 Intake Total 130 830 10 Output Total 100 290 Balance 30 540 10 Weight 87.5 kg Intake: IV 10 20 10 Invasive Line 2 10 20 10 Oral 120 810 Output: Urine 100 290 Other: Voiding Method Indwelling Catheter Indwelling Catheter Indwelling Catheter # Bowel Movements 0 2 - Labs CBC & Chem 7: 07/11/24 06:34 07/11/24 06:34 Labs: Abnormal Lab Results - Last 24 Hours (Table) 07/09/24 07/11/24 07/11/24 Range/Units 05:51 06:34 06:34 WBC 12.97 H (4.50-10.00) 10*3/uL RBC 2.31 L (4.10-5.20) 10*6/uL Hgb 7.7 L (12.0-15.0) g/dL Hct 23.6 L (37.2-46.3) % MCV 102.2 H (80.0-97.0) fL MCH 33.3 H (27.0-32.0) pg RDW 25.1 H (11.5-14.5) % Plt Count 40 L* 67 L (140-440) 10*3/uL Immature Gran # 0.06 H (0.00-0.04) 10*3/uL Neutrophils # 11.20 H (1.80-7.70) 10*3/uL Lymphocytes # 0.55 L (0.90-5.00) 10*3/uL Monocytes # 1.15 H (0.20-1.00) 10*3/uL Eosinophils # 0.00 L (0.04-0.35) 10*3/uL Sodium 129 L (137-145) mmol/L Chloride 90 L (98-107) mmol/L BUN 85 H (7-17) mg/dL Creatinine 5.44 H (0.52-1.04) mg/dL Glucose 128 H (74-99) mg/dL Total Bilirubin 2.6 H (0.2-1.3) mg/dL AST 87 H (14-36) U/L Total Protein 5.1 L (6.3-8.2) g/dL Albumin 2.9 L (3.5-5.0) g/dL Microbiology - Last 24 Hours (Table) 07/08/24 12:16 Gram Stain - Preliminary Ascites Fluid Body Fluid Culture - Preliminary 07/08/24 12:16 Anaerobic Culture - Preliminary Ascites Fluid Assessment and Plan Plan: Assessment: 1. Acute kidney injury secondary to ATN secondary to hypotension. Creatinine 4.79 on admission and is up to 5.44 today. Urine output about 300 cc in the last 24 hours. Creatinine 2.52 dated May 04, 2024. No hydronephrosis noted on kidney ultrasound. 2. Hypovolemic hyponatremia from poor intake and vomiting. Urine sodium less than 20. TSH noted to be low. Improved. Now appears hypervolemic. Improved post paracentesis. 3. Liver cirrhosis. Patient gets weekly paracentesis. Last paracentesis July 08, 2024 with 5.5 L drained. 4. Metabolic acidosis secondary to acute kidney injury. On oral bicarb. Better. 5. Hepatic encephalopathy. Mentation better. 6. Urinary retention. Has Villa catheter. Plan: Encouraged oral intake. Maintain fluid restriction. Maintain midodrine. Maintain spironolactone 25 mg twice daily. Maintain Lasix. Avoid nephrotoxins. Continue to monitor renal function and urine output. Patient and family wish for no formal renal replacement therapy. Patient is not an ideal candidate for renal replacement therapy. Family meeting to be held today to consider possible hospice.
[2024-07-11 13:50] VITALS: BMI 32.1
--- NOTE | 2024-07-11 14:02 | P.PN ---
Subjective Progress Note Date: 07/11/24 Principal diagnosis: Transaminitis This is a pleasant 69-year-old female who was brought in by EMS for concerns of altered mental status changes. Patient currently alert and oriented to self and place however is a poor historian and confused with some of her history. Patient's at bedside reports patient has history of liver disease diagnosed 5 to 10 years ago and follows with Dr. Pandey [facility] who is a automation developer and transplant subway repair supervisor. Underlying liver disease secondary to liver cirrhosis. Patient has past medical history includi ng diabetes mellitus, chronic renal failure, decompensated liver cirrhosis with ascites requiring weekly paracentesis, obesity, and coronary artery disease status post cardiac stents. Patient was noted to be confused on admission, mildly elevated bilirubin and AST which is consistent with underlying liver disease elevated ammonia at 176 on admission. Gastroenterology consulted for hyperbilirubinemia. Patient was started on lactulose 30 g 3 times daily. Patient's home meds include lactulose 10 mg twice daily as needed, patient states she was taking it. Also on Xifaxan 550 mg twice daily. Brain CT with no acute intracranial process. July 08, 2024 Patient seen and examined today as a follow-up. No acute changes through the night. Some improved mentation. No abdominal pain nausea or vomiting. Undergoing paracentesis today. Slight improvement in sodium, total bilirubin 3.6 AST 65 ALT 19 alkaline phosphatase 57 July 09, 2024 Patient seen and examined today as a follow-up. She is sitting up at the bedside. Her and son are at the bedside. They are requesting a informa tional meeting with the hospice team. Patient's mentation improved today. She is alert and oriented x 3. She underwent paracentesis yesterday with 5.5 L removed. WBC 7.8 hemoglobin 7.1 platelet count 40,000 sodium 130 potassium 3.3 BUN 86 creatinine 4.6 total bilirubin 3.4 AST 38 ALT 15 alkaline phosphatase 55. Cytology and fluid cultures were ordered by primary medical team. Currently pending. Nephrology following and stating that patient likely will require renal replacement therapy however would not tolerate as patient has been hypotensive and is requiring midodrine. July 10, 2024 Patient seen and examined today as a follow-up. Physical therapy and Occupational Therapy at the bedside. Patient is very weak and only able to stand at the side of the bed with two-person assist. is at the bedside states that she has been sleeping most of the morning. She is awake and alert at this time but seems not quite as alert as yesterday. Patient's states she has not been eating much. Paracentesis cytology negative for malignant cells. Today's labs WBC 10.5 hemoglobin 8.1 platelet count 69,000 sodium 127 potassium 3.6 BUN 86 creatinine 4.67 bilirubin 3.3 AST 60 ALT 18 alkaline phosphatase 75 ammonia level 51. Patient reportedly only had 1 bowel movement yesterday and none this morning. July 11, 2024 Patient is seen and examined today as a follow-up. Patient is sitting up eating. She is more awake and alert today. After increasing her lactulose yesterday she did end up having 3-4 bowel movements. WBC 12.9 hemoglobin 7.7 platelet count 67,000 sodium 129 potassium 3.8 BUN 85 creatinine 5.4 total bilirubin 2.6 AST 87 ALT 23 alkaline phosphatase 87 ammonia level 13 Objective - Vital Signs Vital signs: Vital Signs Temp 97.8 F 07/11/24 04:00 Pulse 91 07/11/24 04:00 Resp 19 07/11/24 04:00 BP 95/51 07/11/24 04:00 Pulse Ox 93 L 07/11/24 04:00 FiO2 Intake & Output 07/10/24 07/11/24 07/11/24 18:59 06:59 18:59 Intake Total 130 830 Output Total 100 290 Balance 30 540 Weight 87.5 kg Intake: IV 10 20 Invasive Line 2 10 20 Oral 120 810 Output: Urine 100 290 Other: Voiding Method Indwelling Catheter Indwelling Catheter # Bowel Movements 0 2 - Labs CBC & Chem 7: 07/11/24 06:34 07/11/24 06:34 Labs: Abnormal Lab Results - Last 24 Hours (Table) 07/09/24 07/10/24 07/10/24 Range/Units 05:51 07:07 07:07 WBC 10.58 H (4.50-10.00) 10*3/uL RBC 2.38 L (4.10-5.20) 10*6/uL Hgb 8.1 L (12.0-15.0) g/dL Hct 24.2 L (37.2-46.3) % MCV 101.7 H (80.0-97.0) fL MCH 34.0 H (27.0-32.0) pg RDW 25.1 H (11.5-14.5) % Plt Count 40 L* 69 L (140-440) 10*3/uL Immature Gran # 0.09 H (0.00-0.04) 10*3/uL Neutrophils # 8.69 H (1.80-7.70) 10*3/uL Lymphocytes # 0.65 L (0.90-5.00) 10*3/uL Monocytes # 1.10 H (0.20-1.00) 10*3/uL Eosinophils # 0.03 L (0.04-0.35) 10*3/uL Sodium 127 L (137-145) mmol/L Chloride 90 L (98-107) mmol/L BUN 86 H (7-17) mg/dL Creatinine 4.67 H (0.52-1.04) mg/dL Glucose 111 H (74-99) mg/dL Magnesium 2.7 H (1.6-2.3) mg/dL Total Bilirubin 3.3 H (0.2-1.3) mg/dL AST 60 H (14-36) U/L Ammonia (<30) umol/L Total Protein 5.1 L (6.3-8.2) g/dL Albumin 2.9 L (3.5-5.0) g/dL 07/10/24 Range/Units 07:07 WBC (4.50-10.00) 10*3/uL RBC (4.10-5.20) 10*6/uL Hgb (12.0-15.0) g/dL Hct (37.2-46.3) % MCV (80.0-97.0) fL MCH (27.0-32.0) pg RDW (11.5-14.5) % Plt Count (140-440) 10*3/uL Immature Gran # (0.00-0.04) 10*3/uL Neutrophils # (1.80-7.70) 10*3/uL Lymphocytes # (0.90-5.00) 10*3/uL Monocytes # (0.20-1.00) 10*3/uL Eosinophils # (0.04-0.35) 10*3/uL Sodium (137-145) mmol/L Chloride (98-107) mmol/L BUN (7-17) mg/dL Creatinine (0.52-1.04) mg/dL Glucose (74-99) mg/dL Magnesium (1.6-2.3) mg/dL Total Bilirubin (0.2-1.3) mg/dL AST (14-36) U/L Ammonia 51 H (<30) umol/L Total Protein (6.3-8.2) g/dL Albumin (3.5-5.0) g/dL Microbiology - Last 24 Hours (Table) 07/08/24 12:16 Anaerobic Culture - Preliminary Ascites Fluid 07/08/24 12:16 Gram Stain - Preliminary Ascites Fluid Body Fluid Culture - Preliminary Assessment and Plan (1) Liver cirrhosis Narrative/Plan: 69-year-old female with altered mental status changes likely secondary from hepatic encephalopathy in the setting of underlying liver cirrhosis sounds like secondary to nonalcoholic steatosis diagnosed 5 to 10 years ago follows with GI and transplant subway repair supervisor regularly. Patient was noted to have elevated ammonia consistent with hepatic and altered mental status changes consistent with hepatic encephalopathy. She undergoes weekly paracentesis last 1 06/30/2024 and patient is scheduled for tomorrow. Will continue to follow. Agree with continued lactulose 30 g 3 times daily titrate to have 3-4 bowel movements and continue with Xifaxan 550 mg twice daily. Current Visit: Yes Status: Acute Code(s): K74.60 - UNSPECIFIED CIRRHOSIS OF LIVER SNOMED Code(s): 08198742 (2) Hepatic encephalopathy Narrative/Plan: Continue lactulose and Xifaxan Current Visit: Yes Status: Acute Code(s): K76.82 - HEPATIC ENCEPHALOPATHY SNOMED Code(s): 56579567 (3) Ascites Current Visit: Yes Status: Acute Code(s): R18.8 - OTHER ASCITES SNOMED Code(s): 683179514 (4) Chronic renal failure Narrative/Plan: Acute kidney injury secondary to ATN secondary to hypotension on chronic renal failure. Nephrology following closely patient likely will need renal repl acement therapy Current Visit: Yes Status: Acute Code(s): N18.9 - CHRONIC KIDNEY DISEASE, UNSPECIFIED SNOMED Code(s): 71631763 (5) Thrombocytopenia Narrative/Plan: Secondary to underlying liver disease and bone marrow suppression Current Visit: Yes Status: Acute Code(s): D69.6 - THROMBOCYTOPENIA, UNSPECIFIED SNOMED Code(s): 685570618 (6) Anemia Narrative/Plan: Secondary to underlying liver disease Current Visit: Yes Status: Acute Code(s): D64.9 - ANEMIA, UNSPECIFIED SNOMED Code(s): 612375087 (7) Hyponatremia Narrative/Plan: Nephrology following Current Visit: Yes Status: Acute Code(s): E87.1 - HYPO-OSMOLALITY AND HYPONATREMIA SNOMED Code(s): 94800614 Plan: 1. Continue symptomatic and supportive care 2. Patient is status post paracentesis. Paracentesis as needed 3. Patient may have renal diet 4. Continue lactulose 30 g 3 times daily, titrate to have 3-4 bowel movements a day. Discussed with patient and family importance of medication compliance 5. Continue with Xifaxan 550 mg twice daily 6. Continue with recommendations from nephrology. Diuretics deferred to nephrology. 7. Hospice consulted for informational meeting per request from family and they are not interested at this time 8. No further workup from gastroenterology. Recommend follow-up with Dr. Nichols and discharge Nephrology following closely. Kidney function not improving patient likely needs renal replacement therapy however is not a good candidate and family is declining renal replacement therapy. Continue with recommendations from medical team. Thank you for allowing us to participate in the care of the patient, the GI service will sign off, gastroenterology will not be available at the hospital this weekend and through next week. If further evaluation by gastroenterology is required the patient will need transfer as per the primary team's discretion. Dr. Daysi So I agree with the dictator's note, documented as a scribe by Becca Astorga.
--- NOTE | 2024-07-11 14:16 | P.PN ---
Subjective Progress Note Date: 07/11/24 Hospital Course: 69 year old F with PMH of liver cirrhosis requiring weekly paracentesis and CKD presents to the ED for generalized weakness and hallucinations. History is supplemented by the as patient appears lethargic. Symptoms ongoing for the past 2 days. He reports she has started hallucinating today along with bouts of NBNB N/V. reports a poor appetite during this time. She reports lightheadedness with changes in position. 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 Patient denies any pain. She denies any headache, fever or chills, cough, chest pain, shortness of breath, palpitations, changes in bowel habits. She denies any numbness/tinging of the extremities. In the ED she underwent extensive evaluation. BP 75/58, HR 89, T 97.4F, RR 18, 90% on RA. CBC, Coag panel, CMP significant for WBC 2.98, Hg 9.8, Hct 30.2, MCV 101.2, Plt 106, PT 14, INR 1.3, Na 124, Cl 87, bicarb 21, BUN 72, Cr 4.79, glu 135, T. Bili 2.6, AST 68, alk phos 133, alb 2.9. Trop < 0.012. Mag 2.8. CXR LLL atelectasis/infiltrate. CT head no acute process. EKG sinus rhythm Admitted for further management of acute metabolic encephalopathy with hallucinations, KALANI on CKD, decompensated cirrhosis. IR consulted, nephrology consulted, GI consulted. 07/07: Per nephrology, patient was provided with 25 g of IV albumin x 2, Villa catheter was inserted. Per IR, no paracentesis planned due to hypotension. Discussed with patient's , he is not interested in hospice or palliative approach at this time, hopeful that his will be able to get liver transplant, reports that her liver specialist states that she would not tolerate the surgery, now is seeking care at another institution, considering [facility]. We did extensively discuss her current medical conditions, recurrent hospitalizations, he shared that she gets admitted every week at different hospitals and not getting desired help. He states that her home blood pressure is usually around 80s over 40s. I addressed very poor prognosis given her decompensated cirrhosis, acute kidney injury, multiple hospitalizations, generalized debility, patient's again was not interested in hospice at this time. Discussed with RN and case management, appears that patient gets discharged from the hospital's, stopped taking her medications and gets readmitted. Abdominal ultrasound showed ascites within all 4 quadrants of the abdomen. TTE with hyperdynamic LV EF 65 to 70%, aortic sclerosis with mild stenosis, no pericardial effusion. 07/08 IR for paracenthesis , IV fluids stopped, now on fluid restriction, started on spironolactone 25 mg bid by nephr, Discussed with CM, refuses placement and home care, understands that she's a 2 person assist. 07/09: Patient is more alert, peritoneal fluid analysis came back suggestive of SBP, started on ceftriaxone, cultures pending. Hospice meeting had placed today, is not quite ready, however, states that no plans for hemodialysi s for the patient. Nephrology added Lasix 40 mg p.o. daily 07/10: Alert but somnolent, no improvement in kidney function, continues to be hypotensive in the 80s over 40s, preliminary peritoneal fluid cultures and Gram stain negative, continued on ceftriaxone 07/11: Goals of care discussion-please today with patient, her and 2 sons, all agreed to proceed with hospice care, hospice notified, plan to discharge tomorrow, DME ordered, pending delivery Subjective: Complains of feeling very fatigued Pertinent positives and negatives as discussed above, a complete review of systems was performed and all other systems are negative. Vitals Signs Reviewed. General: [toxic], [no distress], [appears at stated age] Derm: [warm], [dry] Head: [atraumatic], [normocephalic], [symmetric] Eyes: [EOMI], [no lid lag], [anicteric sclera] Mouth: [no lip lesion], [mucus membranes moist] Cardiovascular: [S1S2 reg], [no murmur] Lungs: [Decreased breath sounds bibasilarly], [no rhonchi, no rales] , [no accessory muscle use] Abdominal: Generalized tenderness, distended, fluid wave appreciated], Ext: [no gross muscle atrophy], bilateral lower extremity edema 1+], [no contractures] Neuro: [ CN II-XI grossly intact], [no focal neuro deficits] Psych: Alert and oriented Data Reviewed Today: Pertinent Labs: WBC 12.9, hemoglobin 7.7, platelet count 67, sodium 129, potassium 3.8, creatinine 5.44, glucose 128 Assessment and Plan: Acute metabolic encephalopathy secondary to KALANI and decompensated cirrhosis, hyponatremia -Ammonia level initially elevated at 176, trended down to 21 -TSH low 0.015, T4 normal -B12 level 2897, folate 15.3 -UA without signs of UTI -home with hospice SBP Decompensated cirrhosis Chronic hypotension secondary to above Thrombocytopenia likely secondary to above Supratherapeutic INR likely secondary to liver cirrhosis -IR consulted for paracentesis, done 07/08, 5.5 L removed -Continue rifaximin 550 mg p.o. twice daily -Ceftriaxone 2 g IV daily SO -Follow-up on peritoneal fluid Gram stain and cultures, currently negative -Continue home midodrine 10 mg 3 times daily AC -continue lactulose 30 g tid,, goal BM 3-4 a day -GI consulted, no new recommendations -Hospice following, home with hospice 07/12 KALAIN secondary to ATN in the settings of hypotension Hypovolemic hyponatremia Hypokalemia Metabolic acidosis secondary to above -Nephrology following, stopped normal saline at 100 cc/h,started on fluid restriction, added spironolactone 25 bid, Lasix 40 mg p.o. daily added, continue home midodrine 10 mg AC 3 times daily, provided with 2 doses of albumin 25% on 07/07 -Maintain Villa catheter for strict I's and O's Microcytic anemia -Hemoglobin stable, no folate or B12 deficiency DVT ppx: SCD Code status: Full code Anticipated discharge place: Home with hospice 07/12 Objective - Vital Signs Vital signs: Vital Signs Temp 97.3 F L 07/11/24 11:33 Pulse 89 07/11/24 11:33 Resp 16 07/11/24 11:33 BP 96/54 07/11/24 11:33 Pulse Ox 96 07/11/24 11:33 FiO2 Intake & Output 07/10/24 07/11/24 07/11/24 18:59 06:59 18:59 Intake Total 130 830 128 Output Total 100 290 Balance 30 540 128 Weight 87.5 kg 87.5 kg Intake: IV 10 20 10 Invasive Line 2 10 20 10 Oral 120 810 118 Output: Urine 100 290 Other: Voiding Method Indwelling Catheter Indwelling Catheter Indwelling Catheter # Bowel Movements 0 2 - Labs CBC & Chem 7: 07/11/24 06:34 07/11/24 06:34 Labs: Abnormal Lab Results - Last 24 Hours (Table) 07/09/24 07/11/24 07/11/24 Range/Units 05:51 06:34 06:34 WBC 12.97 H (4.50-10.00) 10*3/uL RBC 2.31 L (4.10-5.20) 10*6/uL Hgb 7.7 L (12.0-15.0) g/dL Hct 23.6 L (37.2-46.3) % MCV 102.2 H (80.0-97.0) fL MCH 33.3 H (27.0-32.0) pg RDW 25.1 H (11.5-14.5) % Plt Count 40 L* 67 L (140-440) 10*3/uL Immature Gran # 0.06 H (0.00-0.04) 10*3/uL Neutrophils # 11.20 H (1.80-7.70) 10*3/uL Lymphocytes # 0.55 L (0.90-5.00) 10*3/uL Monocytes # 1.15 H (0.20-1.00) 10*3/uL Eosinophils # 0.00 L (0.04-0.35) 10*3/uL Sodium 129 L (137-145) mmol/L Chloride 90 L (98-107) mmol/L BUN 85 H (7-17) mg/dL Creatinine 5.44 H (0.52-1.04) mg/dL Glucose 128 H (74-99) mg/dL Total Bilirubin 2.6 H (0.2-1.3) mg/dL AST 87 H (14-36) U/L Total Protein 5.1 L (6.3-8.2) g/dL Albumin 2.9 L (3.5-5.0) g/dL Microbiology - Last 24 Hours (Table) 07/08/24 12:16 Gram Stain - Preliminary Ascites Fluid Body Fluid Culture - Preliminary 07/08/24 12:16 Anaerobic Culture - Preliminary Ascites Fluid
[2024-07-11 23:50] VITALS: RESP 16
[2024-07-12] MEDS: MIDODRINE 5 MG TAB PO STA (00:17)
[2024-07-12 08:27] LABS: African American GFR (CKD) 8 (>60 ml/min/1.73 sqM); Anion Gap 16 mmol/L; Blood Urea Nitrogen 91 mg/dL (7-17); Calcium 8.7 mg/dL (8.4-10.2); Carbon Dioxide 20 mmol/L (22-30); Chloride 86 mmol/L (98-107); Glucose 115 mg/dL (74-99); Magnesium 2.8 mg/dL (1.6-2.3); Non-African American GFR(CKD) 7 (>60 ml/min/1.73 sqM); Phosphorus 7.4 mg/dL (2.5-4.5); Potassium 3.8 mmol/L (3.5-5.1); Sodium 122 mmol/L (137-145)
[2024-07-12 09:10] VITALS: BP 79/38; PULSE 92; TEMP 97.6
--- NOTE | 2024-07-12 11:56 | P.PN ---
Subjective Patient is seen for follow-up for hyponatremia and acute kidney injury. Serum sodium is 122 today and creatinine is 5.5. It appears that patient has decided to proceed with hospice care and she will be discharged today. No significant complaints. Objective - Vital Signs Vital signs: Vital Signs Temp 97.6 F 07/12/24 09:09 Pulse 92 07/12/24 09:09 Resp 16 07/12/24 09:09 BP 79/38 07/12/24 09:09 Pulse Ox 94 L 07/12/24 09:09 FiO2 Intake & Output 07/11/24 07/12/24 07/12/24 18:59 06:59 18:59 Intake Total 128 Output Total 125 75 Balance 3 -75 Weight 87.5 kg 87 kg Intake: IV 10 Invasive Line 2 10 Oral 118 Output: Urine 125 75 Other: Voiding Method Indwelling Catheter Indwelling Catheter Indwelling Catheter # Bowel Movements 1 - Exam Patient is awake, comfortable, no acute distress Examination of the heart S1 and S2 Examination of the lungs bilateral breath sounds are heard Abdomen is soft nontender obese Examination of lower extremity shows edema 1+ bilaterally - Labs CBC & Chem 7: 07/11/24 06:34 07/12/24 06:40 Labs: Abnormal Lab Results - Last 24 Hours (Table) 07/12/24 Range/Units 06:40 Sodium 122 L (137-145) mmol/L Chloride 86 L (98-107) mmol/L Carbon Dioxide 20 L (22-30) mmol/L BUN 91 H (7-17) mg/dL Creatinine 5.55 H (0.52-1.04) mg/dL Glucose 115 H (74-99) mg/dL Phosphorus 7.4 H (2.5-4.5) mg/dL Magnesium 2.8 H (1.6-2.3) mg/dL Microbiology - Last 24 Hours (Table) 07/08/24 12:16 Anaerobic Culture - Final Ascites Fluid 07/08/24 12:16 Gram Stain - Final Ascites Fluid Body Fluid Culture - Final Assessment and Plan Assessment: 1. Acute kidney injury secondary to ATN secondary to hypotension. Creatinine 4.79 on admission and is up to 5.5 today. No plans for renal replacement therapy. Urine output about 300 cc in the last 24 hours. Creatinine 2.52 dated May 04, 2024. No hydronephrosis noted on kidney ultrasound. 2. Hypovolemic hyponatremia from poor intake and vomiting. Urine sodium less than 20. TSH noted to be low. Improved. Now appears hypervolemic. Improved post paracentesis. 3. Liver cirrhosis. Patient gets weekly paracentesis. Last paracentesis July 08, 2024 with 5.5 L drained. 4. Metabolic acidosis secondary to acute kidney injury. On oral bicarb. Better. 5. Hepatic encephalopathy. Mentation better. 6. Urinary retention. Has Villa catheter. Plan: Agree with plans for hospice care. Patient is not an ideal candidate for renal replacement therapy.
--- NOTE | 2024-07-12 13:04 | P.DS ---
Providers Date of admission: 07/06/24 12:12 Attending physician: Tray Razo Consults: 07/06/24 12:12 Consult Physician Urgent Consulting Provider: Hernan Jernigan Consult Reason/Comments: Acute on chronic renal failure Do you want consulting provider notified?: Yes Consult Physician Urgent Consulting Provider: Natty So Consult Reason/Comments: Hyperbilirubinemia Do you want consulting provider notified?: Yes Primary care physician: Korin Ramesh MD Hospital Course: Discharge Diagnosis: Acute metabolic encephalopathy secondary to KALANI and decompensated cirrhosis, hyponatremia SBP Decompensated cirrhosis Chronic hypotension secondary to above Thrombocytopenia secondary to above Supratherapeutic INR likely secondary to liver cirrhosis KALANI secondary to ATN in the setting of hypotension Hypovolemic hyponatremia Hyperkalemia Metabolic acidosis secondary above Microcytic anemia Hospital Course: 69 year old F with PMH of liver cirrhosis requiring weekly paracentesis and CKD presents to the ED for generalized weakness and hallucinations. History is supplemented by the as patient appears lethargic. Symptoms ongoing for the past 2 days. He reports she has started hallucinating today along with bouts of NBNB N/V. reports a poor appetite during this time. She reports lightheadedness with changes in position. 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 Patient denies any pain. She denies any headache, fever or chills, cough, chest pain, shortness of breath, palpitations, changes in bowel habits. She denies any numbness/tinging of the extremities. In the ED she underwent extensive evaluation. BP 75/58, HR 89, T 97.4F, RR 18, 90% on RA. CBC, Coag panel, CMP significant for WBC 2.98, Hg 9.8, Hct 30.2, MCV 101.2, Plt 106, PT 14, INR 1.3, Na 124, Cl 87, bicarb 21, BUN 72, Cr 4.79, glu 135, T. Bili 2.6, AST 68, alk phos 133, alb 2.9. Trop < 0.012. Mag 2.8. CXR LLL atelectasis/infiltrate. CT head no acute process. EKG sinus rhythm Admitted for further management of acute metabolic encephalopathy with hallucinations, KALANI on CKD, decompensated cirrhosis. IR consulted, nephrology consulted, GI consulted. 07/07: Per nephrology, patient was provided with 25 g of IV albumin x 2, Villa catheter was inserted. Per IR, no paracentesis planned due to hypotension. Discussed with patient's , he is not interested in hospice or palliative approach at this time, hopeful that his will be able to get liver transplant, reports that her liver specialist states that she would not tolerate the surgery, now is seeking care at another institution, considering [facility]. We did extensively discuss her current medical conditions, recurrent hospitalizations, he shared that she gets admitted every week at different hospitals and not getting desired help. He states that her home blood pressure is usually around 80s over 40s. I addressed very poor prognosis given her decompensated cirrhosis, acute kidney injury, multiple hospitalizations, generalized debility, patient's again was not interested in hospice at this time. Discussed with RN and case management, appears that patient gets discharged from the hospital's, stopped taking her medications and gets readmitted. Abdominal ultrasound showed ascites within all 4 quadrants of the abdomen. TTE with hyperdynamic LV EF 65 to 70%, aortic sclerosis with mild stenosis, no pericardial effusion. 07/08 IR for paracenthesis , IV fluids stopped, now on fluid restriction, started on spironolactone 25 mg bid by nephr, Discussed with CM, refuses placement and home care, understands that she's a 2 person assist. 07/09: Patient is more alert, peritoneal fluid analysis came back suggestive of SBP, started on ceftriaxone, cultures pending. Hospice meeting had placed today, is not quite ready, however, states that no plans for hemodialysis for the patient. Nephrology added Lasix 40 mg p.o. daily 07/10: Alert but somnolent, no improvement in kidney function, continues to be hypotensive in the 80s over 40s, preliminary peritoneal fluid cultures and Gram stain negative, continued on ceftriaxone 07/11: Goals of care discussion-please today with patient, her and 2 sons, all agreed to proceed with hospice care, hospice notified, , DME ordered, discharged on 07/12 Patient seen and examined at bedside.[] Vital signs reviewed and stable. General: [nontoxic], [no distress], [appears at stated age] Derm: [warm], [dry] Head: [atraumatic], [normocephalic], [symmetric] Eyes: [EOMI], [no lid lag], [anicteric sclera] Mouth: [no lip lesion], [mucus membranes moist] Cardiovascular: [S1S2 reg], [no murmur] Lungs: [Decreased breath sounds bibasilarly], [no rhonchi, no rales] , [no accessory muscle use] Abdominal: Generalized tenderness, distended, fluid wave appreciated], Ext: [no gross muscle atrophy], bilateral lower extremity edema 1+], [no contractures] Neuro: [ CN II-XI grossly intact], [no focal neuro deficits] Psych: Alert and oriented A total of 40 minutes of time were spent preparing this complex discharge summary. Plan - Discharge Summary Discharge Rx Participant: No New Discharge Prescriptions: No Action Midodrine [ProAmatine] 17.5 tab PO TID Lactulose 10 gm PO BID PRN PRN Reason: Constipation Pantoprazole [Protonix] 40 mg PO BID Cider Vinegar [Apple Cider Vinegar] 300 mg PO DAILY Ondansetron Odt [Zofran Odt] 4 mg PO Q6H PRN PRN Reason: Nausea And Vomiting Rifaximin [Xifaxan] 550 mg PO BID Sodium Bicarbonate Tab 1,300 mg PO TID Rosuvastatin [Crestor] 20 mg PO HS Aspirin [Adult Low Dose Aspirin EC] 81 mg PO DAILY Hydrocortisone Cream [Hydrocortisone 2.5% Cream] 1 applic TOPICAL DAILY Discharge Medication List Aspirin [Adult Low Dose Aspirin EC] 81 mg PO DAILY 07/01/24 [History] Cider Vinegar [Apple Cider Vinegar] 300 mg PO DAILY 07/01/24 [History] Lactulose 10 gm PO BID PRN 07/01/24 [History] Midodrine [ProAmatine] 17.5 tab PO TID 07/01/24 [History] Pantoprazole [Protonix] 40 mg PO BID 07/01/24 [History] Rosuvastatin [Crestor] 20 mg PO HS 07/01/24 [History] Sodium Bicarbonate Tab 1,300 mg PO TID 07/01/24 [History] Hydrocortisone Cream [Hydrocortisone 2.5% Cream] 1 applic TOPICAL DAILY 07/06/24 [History] Ondansetron Odt [Zofran Odt] 4 mg PO Q6H PRN 07/06/24 [History] Rifaximin [Xifaxan] 550 mg PO BID 07/06/24 [History] Follow up Appointment(s)/Referral(s): [facility]NON-STAFF] - 1 Week Korin Ramesh MD [Primary Care Provider] - 1-2 days Discharge Disposition: HOME WITH HOSPICE
== END 2024-07-12 13:51 | disposition hospice, home (50) | DRG 432 ==
LOC: SUPCPDRO 08:54 → EC 08:54 → 3SCARD 12:12
PROVIDERS: ADMIT Student in an Organized Health Care Education/Training Program; ATTEND Student in an Organized Health Care Education/Training Program
PROC: 0W9G3ZX Drainage of Peritoneal Cavity, Percutaneous Approach, Diagnostic (ICD-10-PCS; principal; 2024-07-08)
DX: K74.60 Unspecified cirrhosis of liver (principal); G93.41 Metabolic encephalopathy; N17.0 Acute kidney failure with tubular necrosis; E87.20 Acidosis, unspecified; E87.1 Hypo-osmolality and hyponatremia; D50.9 Iron deficiency anemia, unspecified; E11.22 Type 2 diabetes mellitus with diabetic chronic kidney disease; K76.82 Hepatic encephalopathy; I70.0 Atherosclerosis of aorta; D69.59 Other secondary thrombocytopenia; N18.9 Chronic kidney disease, unspecified; J98.11 Atelectasis; R18.8 Other ascites; Z51.5 Encounter for palliative care; Z66 Do not resuscitate; D53.9 Nutritional anemia, unspecified; R79.1 Abnormal coagulation profile; I25.10 Atherosclerotic heart disease of native coronary artery without angina pectoris; E86.0 Dehydration; E80.6 Other disorders of bilirubin metabolism; E86.1 Hypovolemia; R53.81 Other malaise; E87.5 Hyperkalemia; R33.9 Retention of urine, unspecified; E87.6 Hypokalemia; I95.1 Orthostatic hypotension; I95.89 Other hypotension; E87.70 Fluid overload, unspecified; Z79.01 Long term (current) use of anticoagulants; Z79.82 Long term (current) use of aspirin; Z79.899 Other long term (current) drug therapy; Z87.891 Personal history of nicotine dependence; Z91.128 Patient's intentional underdosing of medication regimen for other reason; Z95.5 Presence of coronary angioplasty implant and graft; Z28.310 Unvaccinated for COVID-19; Z71.3 Dietary counseling and surveillance; Z79.52 Long term (current) use of systemic steroids; Z88.8 Allergy status to other drugs, medicaments and biological substances
CPT/HCPCS: 36415; 49083; 70450; 71046; 76705; 76770; 80048; 80053; 81001; 82140; 82607; 82728; 82746; 83540; 83550; 83735; 83930; 83935; 84100; 84157; 84300; 84439; 84443; 84484; 85025; 85610; 85730; 87070; 87075; 87205; 88108; 88305; 89050; 93005; 93306; 94760; 96361; 96374; 99285